=== PATIENT | male | born 1955 | race Caucasian/White ===

== ENCOUNTER → 2021-04-14 08:45 | Outpatient (CLI) | payer OTHER, SELFPAY ==
[2021-04-14 09:57] LABS: Prothrombin Time 22.7 SECONDS (10.1-12.7)
== END ==
PROVIDERS: PCP Internal Medicine; Referring Provider Internal Medicine; Visit Provider Internal Medicine
DX: I48.91 Unspecified atrial fibrillation (principal)
CPT/HCPCS: 36415; 85610

== ENCOUNTER → 2021-05-13 09:52 | Outpatient (CLI) | payer OTHER, SELFPAY ==
[2021-05-13 11:13] LABS: Add Manual Diff / Slide Review NO; Basophils Absolute Auto 100 /uL (0-100); Basophils Percent Auto 0.8 % (0-2); Eosinophils Absolute Auto 200 /uL (0-450); Eosinophils Percent Auto 2.5 % (2-4); Hemoglobin 14.2 g/dL (13.5-17.5); Lymphocytes Absolute Auto 1300 /uL (1100-4500); Lymphocytes Percent Auto 20.7 % (25-40); Mean Corpuscular HGB Conc 35.4 % (30-36); Mean Corpuscular Hemoglobin 31.3 PG (26-34); Mean Corpuscular Volume 88.3 fL (80-100); Monocytes Absolute Auto 600 /uL (0-900); Monocytes Percent Auto 9.8 % (3-14); Neutrophils Absolute Auto 4300 /uL (1500-7000); Neutrophils Percent Auto 66.2 % (50-75); Platelet Count 112 X10^3/uL (150-400); Red Blood Cell Count 4.53 X10^6/uL (4.5-5.9); White Blood Cell Count 6.5 X10^3/uL (4.5-11.0)
[2021-05-13 11:29] LABS: HEMOLYSIS < 15 (0-50); Iron 96 ug/dL (49-181)
[2021-05-13 11:32] LABS: Alanine Aminotransferase 23 IU/L (<50); Albumin 4.5 g/dL (3.5-5.0); Albumin Globulin Ratio 1.7 (1.0-2.8); Alkaline Phosphatase 58 U/L (38-126); Aspartate Aminotransferase 30 IU/L (17-59); BUN Creatinine Ratio 21.8 (6-22); Bilirubin Total 0.8 mg/dL (0.2-1.3); Blood Urea Nitrogen 22 mg/dL (9-20); Calcium 9.7 mg/dL (8.4-10.2); Carbon Dioxide 29 mmol/L (22-32); Chloride 106 mmol/L (98-107); Estimated Glomerular Filt Rate > 60.0 mL/min (>60); Globulin 2.7 g/dL (1.7-4.1); Glucose 108 mg/dL (80-110); HEMOLYSIS < 15 (0-50); Potassium 3.9 mmol/L (3.4-5.1); Sodium 140 mmol/L (137-145); Total Protein 7.2 g/dL (6.3-8.2)
[2021-05-13 11:39] LABS: Percent Iron Saturation 29 % (20-50); Total Iron Binding Capacity 331 ug/dL (261-462); Transferrin 257 mg/dL (206-381)
[2021-05-13 11:48] LABS: Vitamin D 25 Hydroxy (D3) 31.5 ng/mL (30.0-100.0)
== END ==
PROVIDERS: PCP Internal Medicine; Referring Provider Internal Medicine; Visit Provider Internal Medicine
DX: E78.2 Mixed hyperlipidemia (principal); I48.0 Paroxysmal atrial fibrillation; I10 Essential (primary) hypertension; Z79.01 Long term (current) use of anticoagulants
CPT/HCPCS: 36415; 80053; 82306; 83540; 83550; 85025

== ENCOUNTER → 2021-07-28 10:15 | Outpatient (CLI) | payer OTHER, SELFPAY ==
[2021-07-28 12:46] LABS: Add Manual Diff / Slide Review NO; Basophils Absolute Auto 0 /uL (0-100); Basophils Percent Auto 0.6 % (0-2); Eosinophils Absolute Auto 200 /uL (0-450); Eosinophils Percent Auto 2.6 % (2-4); Hemoglobin 14.8 g/dL (13.5-17.5); Lymphocytes Absolute Auto 1300 /uL (1100-4500); Lymphocytes Percent Auto 19.8 % (25-40); Mean Corpuscular HGB Conc 35.2 % (30-36); Mean Corpuscular Hemoglobin 30.9 PG (26-34); Mean Corpuscular Volume 87.9 fL (80-100); Monocytes Absolute Auto 600 /uL (0-900); Neutrophils Absolute Auto 4500 /uL (1500-7000); Platelet Count 116 X10^3/uL (150-400); Red Blood Cell Count 4.78 X10^6/uL (4.5-5.9); Red Cell Distribution Width 14.1 % (11.6-14.8); White Blood Cell Count 6.6 X10^3/uL (4.5-11.0)
[2021-07-28 13:04] LABS: HEMOLYSIS < 15 (0-50); Iron 140 ug/dL (49-181)
[2021-07-28 13:13] LABS: Alanine Aminotransferase 26 IU/L (<50); Albumin 4.3 g/dL (3.5-5.0); Albumin Globulin Ratio 1.7 (1.0-2.8); Alkaline Phosphatase 63 U/L (38-126); Aspartate Aminotransferase 31 IU/L (17-59); BUN Creatinine Ratio 17.5 (6-22); Bilirubin Total 0.9 mg/dL (0.2-1.3); Blood Urea Nitrogen 18 mg/dL (9-20); Carbon Dioxide 28 mmol/L (22-32); Chloride 105 mmol/L (98-107); Cholesterol 165 mg/dL (140-199); Estimated Glomerular Filt Rate > 60 mL/min (>60); Globulin 2.6 g/dL (1.7-4.1); Glucose 105 mg/dL (80-110); HDL Cholesterol 45 mg/dL (40-60); HEMOLYSIS < 15 (0-50); LDL Cholesterol Calculated 92 mg/dL (<100); Sodium 138 mmol/L (137-145); Total Protein 6.9 g/dL (6.3-8.2); Triglycerides 139 mg/dL (35-150)
[2021-07-28 13:15] LABS: Percent Iron Saturation 41 % (20-50); Total Iron Binding Capacity 339 ug/dL (261-462); Transferrin 235 mg/dL (206-381)
== END ==
PROVIDERS: PCP Internal Medicine; Referring Provider Internal Medicine; Visit Provider Internal Medicine
DX: E78.2 Mixed hyperlipidemia (principal); E78.5 Hyperlipidemia, unspecified; D69.6 Thrombocytopenia, unspecified; I10 Essential (primary) hypertension; Z79.01 Long term (current) use of anticoagulants
CPT/HCPCS: 36415; 80053; 80061; 83540; 83550; 85025

== ENCOUNTER → 2021-08-02 13:31 | Outpatient (CLI) | payer OTHER, SELFPAY ==
--- NOTE | 2021-08-02 | DI.ECHO.S_ITS ---
[facility] +---------+ : : [address] : [address] [place] : : : : [id number] : : : : Phone: [phone] Echocardiogram Report + + :Name: LETHA KLEIN Study Date: 08/02/2021 Height: 73 in : :[facility] ReadingLocation: Weight: 269 lb : : Gender: Male BSA: 2.4 m2 : :: 1955 Age: 66 yrs BP: 169/93 mmHg: :Reason For Study: Aortic valve replacement - mechanical : :Ordering Physician: SYLWIA, : :NACHO Performed By: Salvador Dawkins : :Referring: NACHO CAMPBELL : + + Interpretation Summary 1) Mildly increased left ventricular thickness (concentric) with normal size, normal wall motion, and normal systolic function (EF 55-60%). 2) Normal right ventricular size and function. 3) There is a mechanical aortic valve that is well seated and opens well (mean gradient 9mm Hg). There is trace aortic regurgitation. 4) Hypertension present during the study (BP 169/93mm Hg). 5) No prior Echo available for comparison. Procedure: A two-dimensional transthoracic echocardiogram with color flow and Doppler was performed. The study quality was technically adequate. There is no prior echocardiogram noted for this patient. The patient was in normal sinus rhythm during the exam. Left Ventricle: The left ventricle is normal in size. There is mild concentric left ventricular hypertrophy. Left ventricular systolic function is normal. The ejection fraction is estimated to be 55-60%. There are no focal wall motion abnormalities. Diastolic parameters suggest probable normal left ventricular diastolic function and normal filling pressures. Right Ventricle: The right ventricle is normal in size and function. Atria: Both atria are normal in size. The interatrial septum grossly appears intact with no obvious evidence for an atrial septal defect. Mitral Valve: The mitral valve is normal in structure and function. There is no mitral regurgitation noted. Aortic Valve: There is a mechanical aortic valve. The prosthetic aortic valve is well-seated. There is probable normal prosthetic aortic valve function. There is trace aortic regurgitation. Tricuspid Valve: The tricuspid valve is normal in structure and function. No tricuspid regurgitation. Pulmonary artery pressures cannot be estimated because of the lack of a measurable TR jet velocity. Pulmonic Valve: The pulmonic valve is not well visualized. There is no pulmonic valvular regurgitation. Great Vessels: The aortic root is not well visualized. The ascending aorta could not be visualized. The IVC is of normal diameter and collapses greater than 50% with a sniff. This suggests a low right atrial pressure of 3 mm Hg. Pericardium/ Pleura There is no pericardial effusion. There is no pleural effusion. MMode/2D Measurements & Calculations LVIDd: 4.5 cm LA dimension: 4.1 cm LVIDs: 3.3 cm LA A2 area: 24.5 cm2 FS: 26.7 % LA A4 area: 19.6 cm2 IVSd: 1.3 cm LA length (vol): 6.0 cm LVPWd: 1.2 cm LA vol: 68.3 ml LV [place]. diameter/BSA (cm/m^2): 1.8 LA vol index: 28.0 ml/m2 LV sys. diameter/BSA (cm/m^2): 1.4 RA long axis: 5.2 cm TAPSE_phl: 2.4 cm Doppler Measurements & Calculations Ao V2 max: 219.0 cm/sec LVOT Max Kelvin: 112.0 cm/sec Ao V2 mean: 136.0 cm/sec LV V1 max P.0 mmHg Ao max P.0 mmHg LV V1 VTI: 24.3 cm Ao mean P.0 mmHg sev ratio: 0.58 Ao V2 VTI: 42.0 cm MV E max kelvin: 88.7 cm/sec AV VR_phl: 0.51 MV A max kelvin: 65.1 cm/sec MV E/A: 1.4 Med Peak E' Kelvin: 11.3 cm/sec E/E' med: 7.8 Lat Peak E' Kelvin: 14.7 cm/sec E/E' lat: 6.0 E/e' average: 6.9 MV dec time: 0.18 sec MV P1/2t-pr_phl: 52.0 msec Reading Physician:04:26 PM
== END ==
PROVIDERS: PCP Internal Medicine; Referring Provider Internal Medicine Cardiovascular Disease; Visit Provider Internal Medicine Cardiovascular Disease
DX: Z95.2 Presence of prosthetic heart valve (principal); Z09 Encounter for follow-up examination after completed treatment for conditions other than malignant neoplasm
CPT/HCPCS: 93306

== ENCOUNTER → 2022-02-18 08:31 | Outpatient (CLI) | payer OTHER, SELFPAY ==
[2022-02-18 10:14] LABS: Add Manual Diff / Slide Review NO; Basophils Absolute Auto 0 /uL (0-100); Basophils Percent Auto 0.7 % (0-2); Eosinophils Absolute Auto 200 /uL (0-450); Hematocrit 41.5 % (41-53); Hemoglobin 14.4 g/dL (13.5-17.5); Lymphocytes Absolute Auto 1300 /uL (1100-4500); Mean Corpuscular HGB Conc 34.8 % (30-36); Mean Corpuscular Hemoglobin 30.3 PG (26-34); Monocytes Absolute Auto 700 /uL (0-900); Monocytes Percent Auto 10.4 % (3-14); Neutrophils Absolute Auto 4500 /uL (1500-7000); Neutrophils Percent Auto 66.9 % (50-75); Platelet Count 128 X10^3/uL (150-400); Red Blood Cell Count 4.76 X10^6/uL (4.5-5.9); Red Cell Distribution Width 14.2 % (11.6-14.8); White Blood Cell Count 6.7 X10^3/uL (4.5-11.0)
[2022-02-18 12:19] LABS: Alanine Aminotransferase 25 IU/L (<50); Albumin 4.3 g/dL (3.5-5.0); Albumin Globulin Ratio 1.9 (1.0-2.8); Alkaline Phosphatase 75 U/L (38-126); Aspartate Aminotransferase 25 IU/L (17-59); BUN Creatinine Ratio 22.7 (6-22); Bilirubin Total 0.5 mg/dL (0.2-1.3); Blood Urea Nitrogen 25 mg/dL (9-20); Calcium 9.2 mg/dL (8.4-10.2); Carbon Dioxide 27 mmol/L (22-32); Chloride 104 mmol/L (98-107); Cholesterol 143 mg/dL (140-199); Estimated Glomerular Filt Rate > 60 mL/min (>60); Globulin 2.3 g/dL (1.7-4.1); Glucose 112 mg/dL (80-110); HDL Cholesterol 39 mg/dL (40-60); LDL Cholesterol Calculated 80 mg/dL (<100); Total Protein 6.6 g/dL (6.3-8.2); Triglycerides 122 mg/dL (35-150)
[2022-02-18 12:20] LABS: HEMOLYSIS < 15 (0-50); Potassium 3.9 mmol/L (3.4-5.1); Sodium 139 mmol/L (137-145)
== END ==
PROVIDERS: PCP Internal Medicine; Referring Provider Internal Medicine; Visit Provider Internal Medicine
DX: D69.6 Thrombocytopenia, unspecified (principal); E78.2 Mixed hyperlipidemia; I10 Essential (primary) hypertension; Z79.01 Long term (current) use of anticoagulants; Z87.898 Personal history of other specified conditions
CPT/HCPCS: 80053; 80061; 84153; 85025

== ENCOUNTER 2022-05-05 04:18 | Emergency (ER) | payer OTHER, SELFPAY ==
[2022-05-05] VITALS (10 sets, daily range): BP systolic 148–183; BP diastolic 77–98; PULSE 63–115; RESP 15–20; TEMP 36.5; O2SAT 94–99; BMI 38.2
--- NOTE | 2022-05-05 04:44 | ED.ARRPALP ---
HPI - Arrhythmia/Palpitations General Chief Complaint: Arrhythmia/Palpitations Stated Complaint: elevated and irregular heart rate Time Seen by Provider: 05/05/22 04:30 Source: patient and family () Mode of arrival: Ambulatory Limitations: no limitations History of Present Illness HPI narrative: Patient is a 67-year-old male. Has a history of paroxysmal atrial fibrillation. Is on diltiazem. Is also on warfarin. Has a history of an aortic valve replacement. This was secondary to endocarditis that he had after having an ablation and subsequent sepsis most likely from a urinary source. That was done 2 years ago. He is had no issues with atrial fibrillation that he knows of since then. Last evening he stated that he started not feel very well. He felt like his heart rate was fast. He can not specifically feel like it is irregular. His heart rate is normally in the 50s and 60s and when he took his heart rate last evening it was in the 90s to 100s. He is not lightheaded. No shortness of breath. He has been taking all of his medications as directed. He is had no recent change to medications. Related Data Home Medications Medication Instructions Recorded Confirmed vit C 250 mg-E 90 mg-zinc 40 1 tab PO QAM AND QPM 04/06/21 03/15/22 mg-copper 1 [id number]-owabqk-xkrtyl chew tablet (PreserVision AREDS-2) diltiazem HCl 180 mg 180 mg PO DAILY 09/23/21 03/15/22 capsule,extended release 24 hr Previous Rx's Medication Instructions Recorded losartan 100 mg tablet 100 mg PO DAILY #90 tabs 05/18/21 potassium chloride 20 mEq 20 meq PO DAILY #90 tabs 05/18/21 tablet,extended release lancets (Coaguchek Lancets) #100 ea 09/23/21 amoxicillin 500 mg tablet 2,000 mg PO ONCE #8 tabs 09/24/21 cholecalciferol (vitamin D3) 25 25 mcg PO DAILY #90 caps 10/04/21 mcg (1,000 unit) capsule atorvastatin 20 mg tablet 20 mg PO BEDTIME #90 tabs 03/15/22 hydrochlorothiazide 25 mg tablet 25 mg PO DAILY #90 tabs 03/15/22 warfarin 5 mg tablet See Rx Instructions .Route 03/21/22 .COMPLEX #130 tabs Allergies Allergy/AdvReac Type Severity Reaction Status Date / Time No Known Drug Allergies Allergy Verified 03/15/22 09:32 Review of Systems Review of Systems ROS Unobtainable: All systems reviewed & are unremarkable except as noted in HPI and below Patient History Medical History Ankle pain Atrial fibrillation (~2017) BPH (benign prostatic hyperplasia) (~2011) Chronic back pain Class 2 obesity with body mass index (BMI) of 38.0 to 38.9 in adult Endocarditis (~2019) History of adenomatous polyp of colon History of elevated PSA Hypertension (~2014) prison current use of anticoagulant Mixed hyperlipidemia Osteoarthritis of hips, bilateral Osteomyelitis (~2020) Thrombocytopenia Wears glasses Surgical History Anesthesia Aortic valve replaced (~2019) History of cardioversion (~2017) History of total hip replacement (~2011) S/P TURP (~2020) Status post ablation of atrial fibrillation (~2019) Family History Father Cancer History of heart disease Hyperlipidemia Mother Cancer Grandmother Rheumatoid arthritis Grandfather Cancer Diabetes mellitus Hypertension Social History Smoking Status: Never smoker Smoking Status: Never smoker alcohol intake frequency: 3 or more drinks per day Alcohol type: beer Substance Use Type: does not use Exam Initial Vital Signs Initial Vital Signs: Vital Signs Pulse Rate 108 H 05/05/22 04:30 Respiratory Rate 18 05/05/22 04:30 Pulse Oximetry 97 05/05/22 04:30 Oxygen Delivery Method 05/05/22 04:30 Const General: cooperative, comfortable and No ill appearing [facility] Head: normal to inspection and normocephalic Resp Effort & Inspection: normal respiratory effort Auscultation: clear to auscultation bilaterally Cardio Rate: tachycardic Rhythm: regular rhythm GI Inspection: normal to inspection Skin General: no rashes or lesions noted Neuro General: patient alert, patient awake, patient oriented x3 and moves all extremities Extrem General: normal to inspection, capillary refill normal and No edema Procedures Cardioversion Consent Signed: Yes Indication: AFib with RVR Stability: Stable Number of attempts (shocks): 1 Joules used: 120 Cardiac rhythm post-cardioversion: Sinus rhythm Procedural Sedation Consent signed: Yes Time out performed: Yes Indication: cardioversion ASA Class: II Mallampati Airway Classification: Class I Preparation: shelter monitor applied, pulse oximeter, capnometry used, supplemental O2 applied, suction/airway equipment at bedside and IV secured Fentanyl: IV Fentanyl dose (mcg): 25 IV Propofol dose (mg): 70 Course Orders Ordered: ED Orders 05/05/22 EKG-12 Lead Routine 05/05/22 04:30 Basic Metabolic Panel Stat Complete Blood Count AUTO DIFF Stat Magnesium Stat 05/05/22 04:46 EKG-12 Lead Stat Sodium Chloride (Normal Saline 0.9%) 1,000 mls @ 125 mls/hr IV CONT MAC Last Admin: 05/05/22 05:00 Dose: 125 mls/hr Documented By: VINAY Discontinued Medications Fentanyl (Fentanyl 100 Mcg/2 Ml Inj) 25 mcg IV NOW ONE Stop: 05/05/22 04:46 Last Admin: 05/05/22 05:05 Dose: 25 mcg Documented By: VINAY Propofol (Propofol 200 Mg/20 Ml Vial) 200 mg IV NOW ONE Stop: 05/05/22 04:46 Last Admin: 05/05/22 05:07 Dose: 70 mg Documented By: VINAY Vital Signs Vital signs: Vital Signs - 8 hr 05/05/22 04:31 05/05/22 05:01 05/05/22 05:05 Temperature 97.7 F Pulse Rate 115 H 104 H 107 H Respiratory Rate 17 18 18 Blood Pressure 182/98 H 181/86 H 183/88 H Pulse Oximetry 97 99 97 Oxygen Delivery Method Room Air 05/05/22 05:08 05/05/22 05:12 05/05/22 04:30 Temperature Pulse Rate 68 67 108 H Respiratory Rate 20 20 18 Blood Pressure 163/77 H Pulse Oximetry 94 98 97 Oxygen Delivery Method Room Air 05/05/22 05:15 05/05/22 05:20 05/05/22 05:30 Temperature Pulse Rate 67 69 63 Respiratory Rate 18 15 17 Blood Pressure 148/78 H 150/85 H 150/79 H Pulse Oximetry 97 98 98 Oxygen Delivery Method Room Air Room Air Room Air MDM - Arrhythmia/Palpitations Lab Data Attestation: I reviewed the patient's lab results. 05/05/22 04:30 05/05/22 04:30 Labs: Lab Results 05/05/22 05/05/22 Range/Units 04:30 04:30 WBC 8.3 (4.5-11.0) X10^3/uL RBC 5.20 (4.5-5.9) X10^6/uL Hgb 15.4 (13.5-17.5) g/dL Hct 45.1 (41-53) % MCV 86.9 (80-100) fL MCH 29.7 (26-34) PG MCHC 34.2 (30-36) % RDW 14.7 (11.6-14.8) % Plt Count 124 L (150-400) X10^3/uL Neut % (Auto) 65.9 (50-75) % Lymph % (Auto) 20.3 L (25-40) % [place] % (Auto) 10.1 (3-14) % Eos % (Auto) 2.9 (2-4) % Baso % (Auto) 0.8 (0-2) % Neut # (Auto) 5500 (3033-7241) /uL Lymph # (Auto) 1700 (4786-1923) /uL [place] # (Auto) 800 (0-900) /uL Eos # (Auto) 200 (0-450) /uL Baso # (Auto) 100 (0-100) /uL Sodium 137 (137-145) mmol/L Potassium 4.0 (3.4-5.1) mmol/L Chloride 100 (98-107) mmol/L Carbon Dioxide 29 (22-32) mmol/L BUN 25 H (9-20) mg/dL Creatinine 1.16 (0.66-1.25) mg/dL Estimated GFR > 60 (>60) mL/min BUN/Creatinine Ratio 21.6 (6-22) Glucose 130 H (80-110) mg/dL Calcium 9.5 (8.4-10.2) mg/dL Magnesium 1.8 (1.6-2.3) mg/dL ECG Data Attestation: I personally reviewed and interpreted this ECG as follows: Interpretation: Pre cardioversion Atrial fibrillation Ventricular rate [address] T wave changes Post cardioversion Sinus rhythm Ventricular rate is 67 Left axis deviation Normal QRS Normal QTC No ST T wave changes MDM Narrative Medical decision making narrative: Patient is on warfarin. Symptoms started last evening at 2100 hours. Had a discussion with him and his regarding options to include rate control with medications versus rhythm control with sedation and cardioversion. We discussed the risks and benefits of each of these. After this discussion the patient opted for the sedation and cardioversion. Consent was signed. Patient was sedated and cardioversion was successful. Patient stated that he did not feel/remember any of the procedure. Was in sinus rhythm afterwards. Plan will be is for him to continue to take all of his medications as directed. No indication to change any of those currently. He was given return precautions. He expressed understanding and agreement. Discharge Plan Departure Patient Disposition: Home Clinical Impression: Atrial fibrillation status post cardioversion Instructions: DI for Cardioversion, DI for Atrial Fibrillation Activity Restrictions/Additional Instructions: I recommend that you continue to take all of your medications as directed. Contact your primary doctor and your associate professor of surgery for follow-up. Return to the emergency department for any new or worsening symptoms. Prescriptions: No Action amoxicillin 500 mg tablet 2,000 mg PO ONCE Qty: 8 3RF Rx Instructions: 4 tabs once 1-2 hours before dental procedure cholecalciferol (vitamin D3) 25 mcg (1,000 unit) capsule 25 mcg PO DAILY Qty: 90 3RF warfarin 5 mg tablet See Rx Instructions .ROUTE .COMPLEX Qty: 130 1RF Dose Instruction: Take 1.5 tablets (7.5 mg) daily, or as directed. Rx Instructions: Take 1.5 tablets (7.5 mg) daily, or as directed. atorvastatin 20 mg tablet 20 mg PO BEDTIME Qty: 90 3RF hydrochlorothiazide 25 mg tablet 25 mg PO DAILY Qty: 90 3RF PreserVision AREDS-2 250-90-40-1 mg tablet,chewable 1 tab PO QAM AND QPM losartan 100 mg tablet 100 mg PO DAILY Qty: 90 3RF potassium chloride 20 mEq tablet extended release 20 meq PO DAILY Qty: 90 3RF (DME) lancets [Coaguchek Lancets] Misc See Rx Instructions .Route Qty: 100 3RF Rx Instructions: As directed diltiazem HCl 180 mg capsule,extended release 24hr 180 mg PO DAILY Referrals: Clifton Leung MD [Primary Care Provider] - Stand Alone Forms: Patient Portal/API
[2022-05-05] MEDS: SODIUM CHLORIDE 0.9% 1,000 ML 125 ML IV (05:00)
[2022-05-05] MEDS: fentaNYL 100 MCG/2 ML INJ 25 MCG IV (05:05)
[2022-05-05] MEDS: propofoL 200 MG/20 ML VIAL IV (05:07)
[2022-05-05 05:08] LABS: Add Manual Diff / Slide Review NO; Basophils Absolute Auto 100 /uL (0-100); Basophils Percent Auto 0.8 % (0-2); Eosinophils Absolute Auto 200 /uL (0-450); Eosinophils Percent Auto 2.9 % (2-4); Hematocrit 45.1 % (41-53); Hemoglobin 15.4 g/dL (13.5-17.5); Lymphocytes Absolute Auto 1700 /uL (1100-4500); Lymphocytes Percent Auto 20.3 % (25-40); Mean Corpuscular HGB Conc 34.2 % (30-36); Mean Corpuscular Hemoglobin 29.7 PG (26-34); Mean Corpuscular Volume 86.9 fL (80-100); Monocytes Absolute Auto 800 /uL (0-900); Monocytes Percent Auto 10.1 % (3-14); Neutrophils Absolute Auto 5500 /uL (1500-7000); Neutrophils Percent Auto 65.9 % (50-75); Platelet Count 124 X10^3/uL (150-400); Red Cell Distribution Width 14.7 % (11.6-14.8); White Blood Cell Count 8.3 X10^3/uL (4.5-11.0)
[2022-05-05 05:11] LABS: BUN Creatinine Ratio 21.6 (6-22); Blood Urea Nitrogen 25 mg/dL (9-20); Calcium 9.5 mg/dL (8.4-10.2); Carbon Dioxide 29 mmol/L (22-32); Chloride 100 mmol/L (98-107); Estimated Glomerular Filt Rate > 60 mL/min (>60); Glucose 130 mg/dL (80-110); HEMOLYSIS 21 (0-50); Magnesium 1.8 mg/dL (1.6-2.3); Sodium 137 mmol/L (137-145)
== END 2022-05-05 06:10 | disposition home or self-care (01) ==
PROVIDERS: Emergency Provider Emergency Medicine; PCP Internal Medicine
DX: I48.20 Chronic atrial fibrillation, unspecified (principal); Z79.01 Long term (current) use of anticoagulants; Z95.2 Presence of prosthetic heart valve
CPT/HCPCS: 36415; 80048; 83735; 85025; 92960; 93005; 96360; 99152; 99153; 99285; 99291; J2704; J3010

== ENCOUNTER → 2022-08-16 07:08 | Outpatient (CLI) | payer OTHER, SELFPAY ==
[2022-08-16 08:08] LABS: Add Manual Diff / Slide Review NO; Basophils Absolute Auto 0 /uL (0-100); Basophils Percent Auto 0.5 % (0-2); Eosinophils Absolute Auto 200 /uL (0-450); Eosinophils Percent Auto 3.3 % (2-4); Hemoglobin 14.6 g/dL (13.5-17.5); Lymphocytes Absolute Auto 1300 /uL (1100-4500); Lymphocytes Percent Auto 17.8 % (25-40); Mean Corpuscular HGB Conc 34.9 % (30-36); Mean Corpuscular Volume 86.1 fL (80-100); Monocytes Absolute Auto 700 /uL (0-900); Monocytes Percent Auto 9.8 % (3-14); Neutrophils Absolute Auto 5000 /uL (1500-7000); Neutrophils Percent Auto 68.6 % (50-75); Platelet Count 123 X10^3/uL (150-400); Red Blood Cell Count 4.88 X10^6/uL (4.5-5.9); Red Cell Distribution Width 14.7 % (11.6-14.8); White Blood Cell Count 7.3 X10^3/uL (4.5-11.0)
[2022-08-16 08:43] LABS: BUN Creatinine Ratio 16.2 (6-22); Blood Urea Nitrogen 18 mg/dL (9-20); Calcium 9.2 mg/dL (8.4-10.2); Carbon Dioxide 29 mmol/L (22-32); Chloride 102 mmol/L (98-107); Cholesterol 147 mg/dL (140-199); Estimated Glomerular Filt Rate > 60 mL/min (>60); Glucose 126 mg/dL (80-110); HDL Cholesterol 42 mg/dL (40-60); HEMOLYSIS < 15 (0-50); LDL Cholesterol Calculated 75 mg/dL (<100); Potassium 3.8 mmol/L (3.4-5.1); Sodium 138 mmol/L (137-145); Triglycerides 150 mg/dL (35-150)
== END ==
PROVIDERS: PCP Internal Medicine; Referring Provider Internal Medicine Cardiovascular Disease; Visit Provider Internal Medicine Cardiovascular Disease
DX: Z79.01 Long term (current) use of anticoagulants (principal); E78.5 Hyperlipidemia, unspecified; I10 Essential (primary) hypertension
CPT/HCPCS: 36415; 80048; 80061; 85025

== ENCOUNTER → 2023-03-07 08:11 | Outpatient (CLI) | payer OTHER, SELFPAY ==
[2023-03-07 09:16] LABS: Add Manual Diff / Slide Review NO; Basophils Absolute Auto 0 /uL (0-100); Basophils Percent Auto 0.5 % (0-2); Eosinophils Absolute Auto 200 /uL (0-450); Eosinophils Percent Auto 2.6 % (2-4); Hematocrit 43.1 % (41-53); Hemoglobin 14.8 g/dL (13.5-17.5); Lymphocytes Absolute Auto 1500 /uL (1100-4500); Lymphocytes Percent Auto 18.3 % (25-40); Mean Corpuscular HGB Conc 34.3 % (30-36); Mean Corpuscular Hemoglobin 29.6 PG (26-34); Mean Corpuscular Volume 86.3 fL (80-100); Monocytes Absolute Auto 700 /uL (0-900); Monocytes Percent Auto 8.7 % (3-14); Neutrophils Absolute Auto 5700 /uL (1500-7000); Neutrophils Percent Auto 69.9 % (50-75); Platelet Count 152 X10^3/uL (150-400); Red Cell Distribution Width 14.3 % (11.6-14.8); White Blood Cell Count 8.2 X10^3/uL (4.5-11.0)
[2023-03-07 13:16] LABS: Alanine Aminotransferase 37 IU/L (<50); Albumin 4.4 g/dL (3.5-5.0); Albumin Globulin Ratio 1.5 (1.0-2.8); Alkaline Phosphatase 87 U/L (38-126); Aspartate Aminotransferase 33 IU/L (17-59); BUN Creatinine Ratio 20.9 (6-22); Blood Urea Nitrogen 24 mg/dL (9-20); Calcium 10.1 mg/dL (8.4-10.2); Carbon Dioxide 27 mmol/L (22-32); Chloride 100 mmol/L (98-107); Cholesterol 142 mg/dL (140-199); Estimated Glomerular Filt Rate > 60 mL/min (>60); Globulin 2.9 g/dL (1.7-4.1); Glucose 115 mg/dL (80-110); HDL Cholesterol 35 mg/dL (40-60); HEMOLYSIS < 15 (0-50); LDL Cholesterol Calculated 79 mg/dL (<100); Potassium 3.9 mmol/L (3.4-5.1); Sodium 136 mmol/L (137-145); Total Protein 7.3 g/dL (6.3-8.2); Triglycerides 139 mg/dL (35-150)
[2023-03-07 13:48] LABS: Prostate Specific Antigen Scrn 1.55 ng/mL (0.1-4.0)
== END ==
PROVIDERS: PCP Internal Medicine; Referring Provider Internal Medicine; Visit Provider Internal Medicine
DX: Z12.5 Encounter for screening for malignant neoplasm of prostate (principal); E78.2 Mixed hyperlipidemia; I10 Essential (primary) hypertension; R73.02 Impaired glucose tolerance (oral); D69.6 Thrombocytopenia, unspecified
CPT/HCPCS: 36415; 80053; 80061; 85025; G0103

== ENCOUNTER → 2023-04-21 07:56 | Outpatient (CLI) | payer OTHER, SELFPAY | LOC: LAB 07:57 | PROVIDERS: PCP Internal Medicine; Referring Provider Orthopaedic Surgery Adult Reconstructive Orthopaedic Surgery; Visit Provider Orthopaedic Surgery Adult Reconstructive Orthopaedic Surgery | DX: M25.551 Pain in right hip (principal) | CPT/HCPCS: 36415; 82495; 83018 ==

== ENCOUNTER → 2023-04-27 10:19 | Outpatient (CLI) | payer OTHER, SELFPAY | PROVIDERS: PCP Internal Medicine; Referring Provider Orthopaedic Surgery Adult Reconstructive Orthopaedic Surgery; Visit Provider Orthopaedic Surgery Adult Reconstructive Orthopaedic Surgery | DX: M25.551 Pain in right hip (principal) | CPT/HCPCS: 36415; 82495; 83018 ==

== ENCOUNTER 2023-06-23 19:51 | Emergency (ER) | payer OTHER, SELFPAY ==
[2023-06-23] VITALS (7 sets, daily range): BP systolic 160–188; BP diastolic 72–81; PULSE 63–76; RESP 16–18; TEMP 36.5; O2SAT 96–98; BMI 37.2
--- NOTE | 2023-06-23 21:03 | ED.GENADULT ---
HPI - General Adult General Chief complaint: Upper Respiratory Symptoms Stated complaint: difficulty swallowing/not sore Time Seen by Provider: 06/23/23 20:56 Source: patient Mode of arrival: Ambulatory History of Present Illness HPI narrative: 68-year-old male presents by private vehicle from home for several weeks of the sensation that he can not swallow well. He states that he was able to eat and drink normally, but he feels like if there was only a small amount of saliva in his throat he has difficulty with his swallowing. He states that he feels like there is something in the center of his throat towards the base of his neck. He states that for the last 3 nights he was not been able to sleep very well due to issues with his home CPAP machine, and this is caused him some anxiety. He states that he feels like his swallowing is worse and so he decided to present for evaluation. Related Data Home Medications Medication Instructions Recorded Confirmed vit C 250 mg-E 90 mg-zinc 40 1 tab PO QAM AND QPM 04/06/21 03/16/23 mg-copper 1 [id number]-fcvyom-hvdxkf chew tablet (PreserVision AREDS-2) diltiazem HCl 360 mg 360 mg PO DAILY 09/12/22 03/16/23 capsule,extended release 24 hr Previous Rx's Medication Instructions Recorded warfarin 5 mg tablet See Rx Instructions .Route 09/15/22 .COMPLEX #135 tabs cholecalciferol (vitamin D3) 25 25 mcg PO DAILY #90 caps 11/15/22 mcg (1,000 unit) capsule amoxicillin 500 mg tablet 2,000 mg (4 x 500 mg) PO ONCE #8 11/22/22 tabs atorvastatin 20 mg tablet 20 mg PO BEDTIME #90 tabs 03/16/23 hydrochlorothiazide 25 mg tablet 25 mg PO DAILY #90 tabs 03/20/23 lancets (Coaguchek Lancets) #100 ea 04/14/23 Coagucheck XS Misc #1 kit 04/17/23 prothrombin time test strips #18 ea 04/17/23 (Coaguchek XS strips) potassium chloride 20 mEq 20 meq PO DAILY #90 tabs 05/15/23 tablet,extended release losartan 100 mg tablet 100 mg PO DAILY #90 tabs 06/05/23 Allergies Allergy/AdvReac Type Severity Reaction Status Date / Time No Known Drug Allergies Allergy Verified 03/16/23 10:52 Review of Systems Review of Systems Narrative: Negative except as noted above Patient History Medical History Impaired glucose tolerance Class 2 obesity with body mass index (BMI) of 38.0 to 38.9 in adult Osteoarthritis of hips, bilateral Thrombocytopenia half-way current use of anticoagulant Mixed hyperlipidemia History of adenomatous polyp of colon Wears glasses Osteomyelitis (~2020) Chronic back pain Ankle pain History of elevated PSA BPH (benign prostatic hyperplasia) (~2011) Endocarditis (~2019) Hypertension (~2014) Atrial fibrillation (~2017) Surgical History Hx of aortic valve replacement, mechanical (~2019) Anesthesia Status post ablation of atrial fibrillation (~2019) History of cardioversion (~2017) History of total hip replacement (~2011) S/P TURP (~2020) Family History Father Cancer History of heart disease Hyperlipidemia Mother Cancer Grandmother Rheumatoid arthritis Grandfather Cancer Diabetes mellitus Hypertension Social History Smoking Status: Never smoker Smoking Status: Never smoker alcohol intake frequency: 0-2 drinks per day Alcohol type: beer Substance Use Type: does not use Exam Initial Vital Signs Initial Vital Signs: Vital Signs Temperature 97.7 F 06/23/23 19:53 Pulse Rate 64 06/23/23 19:53 Respiratory Rate 16 06/23/23 19:53 Blood Pressure 188/81 H 06/23/23 19:53 Pulse Oximetry 98 06/23/23 19:53 Oxygen Delivery Method Room Air 06/23/23 19:53 Const: Awake, alert, no acute distress, nontoxic appearing HEENT: Airway patent, mucous membranes moist, no pooling of secretions, no tonsillar swelling, voice normal Neck: No obvious masses, no swelling Skin: Warm, Dry, intact, no rashes Neuro: AO x3, CN II-XII grossly intact, moves all extremities Course Orders Ordered: ED Orders 06/23/23 21:02 CT soft tissue neck w con Stat 06/23/23 21:10 CBC Auto Diff [Complete Blood Count AUTO DIFF] Stat CMP [Comprehensive Metabolic Panel] Stat PT [Prothrombin Time INR] Stat Vital Signs Vital signs: Vital Signs - 8 hr 06/23/23 23:00 06/23/23 23:28 06/23/23 23:28 Pulse Rate 76 65 Blood Pressure 164/76 H Pulse Oximetry 96 96 06/23/23 23:30 06/23/23 23:30 06/24/23 00:00 Pulse Rate 63 63 Blood Pressure 160/72 H Pulse Oximetry 97 98 Medical Decision Making Differential Diagnosis Differential Diagnosis: Thyroid nodule, bacterial pharyngitis, viral pharyngitis Lab Data 06/23/23 21:10 06/23/23 21:10 Labs: Lab Results 06/23/23 Range/Units 21:10 WBC 8.9 (4.5-11.0) X10^3/uL RBC 4.93 (4.5-5.9) X10^6/uL Hgb 14.9 (13.5-17.5) g/dL Hct 43.2 (41-53) % MCV 87.7 (80-100) fL MCH 30.2 (26-34) PG MCHC 34.5 (30-36) % RDW 14.5 (11.6-14.8) % Plt Count 134 L (150-400) X10^3/uL Neut % (Auto) 68.0 (50-75) % Lymph % (Auto) 16.7 L (25-40) % [place] % (Auto) 11.5 (3-14) % Eos % (Auto) 2.8 (2-4) % Baso % (Auto) 1.0 (0-2) % Neut # (Auto) 6100 (7618-9966) /uL Lymph # (Auto) 1500 (2017-6747) /uL [place] # (Auto) 1000 H (0-900) /uL Eos # (Auto) 300 (0-450) /uL Baso # (Auto) 100 (0-100) /uL PT 25.4 H (9.4-12.5) SECONDS INR 2.2 H (0.9-1.3) Sodium 140 (137-145) mmol/L Potassium 3.7 (3.4-5.1) mmol/L Chloride 105 (98-107) mmol/L Carbon Dioxide 27 (22-32) mmol/L BUN 20 (9-20) mg/dL Creatinine 1.02 (0.66-1.25) mg/dL Estimated GFR > 60 (>60) mL/min BUN/Creatinine Ratio 19.6 (6-22) Glucose 113 H (80-110) mg/dL Calcium 9.7 (8.4-10.2) mg/dL Total Bilirubin 0.8 (0.2-1.3) mg/dL AST 27 (17-59) IU/L ALT 24 (<50) IU/L Alkaline Phosphatase 70 (38-126) U/L Total Protein 7.3 (6.3-8.2) g/dL Albumin 4.7 (3.5-5.0) g/dL Globulin 2.6 (1.7-4.1) g/dL Albumin/Globulin Ratio 1.8 (1.0-2.8) Imaging Data CT - cervical spine: Radiologist's Impression: PROCEDURE: CT SOFT TISSUE NECK W CON INDICATIONS: DIFFICULTY SWALLOWING/GLOBUS SENSATION TECHNIQUE: After the administration of intravenous contrast, 3.0 mm axial sections acquired from the sella to the aortic arch. Additional oblique axial 3.0 mm sections acquired through the pharynx. 3 mm thick coronal and sagittal reformats were generated. For radiation dose reduction, the following was used: automated exposure control. COMPARISON: None. FINDINGS: Image quality: Excellent. Lymph nodes: No enlarged lymph nodes seen throughout the neck. Vessels: Visualized vasculature appears patent. Neck spaces: Uvula appears prominent. The oropharynx, nasopharynx, and pharynx demonstrate no mucosal lesions. The vocal cords, false vocal cords, pyriform sinuses, epiglottis, vallecula, and tongue base all appear normal. Extramucosal spaces appear unremarkable. Glands: The parotid and submandibular glands appear normal. Thyroid gland is normal. Miscellaneous: Visualized brain and orbits appear normal. Lung apices appear clear. Superficial soft tissues appear normal. Bones: No suspicious bony lesions. Visualized sinuses and mastoids appear unremarkable. IMPRESSION: 1. A cause for dysphagia is not definitively identified. 2. Question enlargement of uvula. Recommend correlation with findings on direct visualization. 3. If clinical symptoms persist, consider modified barium swallow with speech pathology. 4. No abnormality in the area of BB marker. Dictated by: Willi Horner M.D. on 06/23/2023 at 23:40 Approved by: Willi Horner M.D. on 06/23/2023 at 23:49 [facility] Narrative Medical decision making narrative: Well-appearing patient with the sensation that he can not swallow. Patient arrived to the emergency room drinking from a water cup without difficulty. Voice is normal. No obvious masses. CT does not show any obvious acute process that would explain patient's symptoms. Patient informed of lab and imaging findings. Patient's INR is 2.2 he was advised of this finding as well. Recommended close follow up with primary care physician if he continues to experience his trouble swallowing. Patient states that he has an upcoming appointment with his sleep doctor for his nightly CPAP adjustments, this may also help the patient sleep better. Discharge Plan Departure Patient Disposition: Home Clinical Impression: Abnormal swallowing Instructions: DI for Oropharyngeal Dysphagia Activity Restrictions/Additional Instructions: Your laboratory work today did not show any significant abnormalities. Your INR today is 2.2. Your CT scan did not show any obvious causes for why you would have trouble swallowing, there are no masses or lesions in your airway or esophagus. I recommend following up with your primary care physician if you continue to experience swallowing abnormalities as a swallow study may be indicated. Prescriptions: No Action warfarin 5 mg tablet See Rx Instructions .ROUTE .COMPLEX Qty: 135 3RF Dose Instruction: Take 1.5 tablets (7.5 mg) daily, or as directed. Rx Instructions: Take 1.5 tablets (7.5 mg) daily, or as directed. cholecalciferol (vitamin D3) 25 mcg (1,000 unit) capsule 25 mcg PO DAILY Qty: 90 3RF amoxicillin 500 mg tablet 2,000 mg PO ONCE Qty: 8 3RF Rx Instructions: 4 tabs once 1-2 hours before dental procedure hydrochlorothiazide 25 mg tablet 25 mg PO DAILY Qty: 90 3RF (DME) lancets [Coaguchek Lancets] Misc See Rx Instructions .Route Qty: 100 3RF Rx Instructions: As directed (DME) Coagucheck XS Misc See Rx Instructions .Route .MEDSUPPLY Qty: 1 0RF Rx Instructions: Use to test INR at home in consultation with AMS to keep INR in target range. Results Reporting: Call or by Secure Message (DME) Coaguchek XS Strip See Rx Instructions .ROUTE .COMPLEX Qty: 18 12RF Dose Instruction: Use or as directed by AMS to keep INR in target range. Results Reporting: Call or by Secure Message. Rx Instructions: Use or as directed by AMS to keep INR in target range. Results Reporting: Call or by Secure Message. potassium chloride 20 mEq tablet extended release 20 meq PO DAILY Qty: 90 3RF losartan 100 mg tablet 100 mg PO DAILY Qty: 90 3RF diltiazem HCl 360 mg capsule,extended release 24hr 360 mg PO DAILY PreserVision AREDS-2 250-90-40-1 mg tablet,chewable 1 tab PO QAM AND QPM atorvastatin 20 mg tablet 20 mg PO BEDTIME Qty: 90 3RF Referrals: Clifton Leung MD [Primary Care Provider] - Stand Alone Forms: Patient Portal/API
[2023-06-23 21:18] LABS: Add Manual Diff / Slide Review NO; Basophils Absolute Auto 100 /uL (0-100); Eosinophils Absolute Auto 300 /uL (0-450); Eosinophils Percent Auto 2.8 % (2-4); Hematocrit 43.2 % (41-53); Hemoglobin 14.9 g/dL (13.5-17.5); Lymphocytes Absolute Auto 1500 /uL (1100-4500); Lymphocytes Percent Auto 16.7 % (25-40); Mean Corpuscular HGB Conc 34.5 % (30-36); Mean Corpuscular Hemoglobin 30.2 PG (26-34); Mean Corpuscular Volume 87.7 fL (80-100); Monocytes Absolute Auto 1000 /uL (0-900); Monocytes Percent Auto 11.5 % (3-14); Neutrophils Absolute Auto 6100 /uL (1500-7000); Platelet Count 134 X10^3/uL (150-400); Red Blood Cell Count 4.93 X10^6/uL (4.5-5.9); Red Cell Distribution Width 14.5 % (11.6-14.8); White Blood Cell Count 8.9 X10^3/uL (4.5-11.0)
[2023-06-23 21:31] LABS: INR 2.2 (0.9-1.3); Prothrombin Time 25.4 SECONDS (9.4-12.5)
[2023-06-23 21:35] LABS: Alanine Aminotransferase 24 IU/L (<50); Albumin 4.7 g/dL (3.5-5.0); Albumin Globulin Ratio 1.8 (1.0-2.8); Alkaline Phosphatase 70 U/L (38-126); Aspartate Aminotransferase 27 IU/L (17-59); BUN Creatinine Ratio 19.6 (6-22); Bilirubin Total 0.8 mg/dL (0.2-1.3); Blood Urea Nitrogen 20 mg/dL (9-20); Calcium 9.7 mg/dL (8.4-10.2); Carbon Dioxide 27 mmol/L (22-32); Chloride 105 mmol/L (98-107); Estimated Glomerular Filt Rate > 60 mL/min (>60); Globulin 2.6 g/dL (1.7-4.1); Glucose 113 mg/dL (80-110); HEMOLYSIS < 15 (0-50); Potassium 3.7 mmol/L (3.4-5.1); Sodium 140 mmol/L (137-145); Total Protein 7.3 g/dL (6.3-8.2)
[2023-06-24] VITALS: PULSE 63; O2SAT 98
== END 2023-06-24 00:12 | disposition home or self-care (01) ==
PROVIDERS: Emergency Provider Emergency Medicine; PCP Internal Medicine
DX: R13.10 Dysphagia, unspecified (principal); Z79.01 Long term (current) use of anticoagulants; Z79.899 Other long term (current) drug therapy
CPT/HCPCS: 36415; 70491; 80053; 85025; 85610; 99283; 99284; Q9967

== ENCOUNTER → 2023-08-10 07:00 | Outpatient (CLI) | payer OTHER, SELFPAY ==
[2023-08-10 08:06] LABS: Add Manual Diff / Slide Review NO; Basophils Absolute Auto 0 /uL (0-100); Basophils Percent Auto 0.7 % (0-2); Eosinophils Absolute Auto 200 /uL (0-450); Lymphocytes Absolute Auto 1300 /uL (1100-4500); Mean Corpuscular HGB Conc 35.6 % (30-36); Mean Corpuscular Hemoglobin 30.7 PG (26-34); Mean Corpuscular Volume 86.2 fL (80-100); Monocytes Absolute Auto 800 /uL (0-900); Neutrophils Absolute Auto 4700 /uL (1500-7000); Neutrophils Percent Auto 67.3 % (50-75); Platelet Count 127 X10^3/uL (150-400); Red Blood Cell Count 4.87 X10^6/uL (4.5-5.9); Red Cell Distribution Width 14.7 % (11.6-14.8)
[2023-08-10 08:29] LABS: Alanine Aminotransferase 28 IU/L (<50); Albumin 4.4 g/dL (3.5-5.0); Alkaline Phosphatase 73 U/L (38-126); Aspartate Aminotransferase 30 IU/L (17-59); BUN Creatinine Ratio 20.8 (6-22); Blood Urea Nitrogen 22 mg/dL (9-20); Calcium 9.6 mg/dL (8.4-10.2); Carbon Dioxide 29 mmol/L (22-32); Chloride 105 mmol/L (98-107); Cholesterol 149 mg/dL (140-199); Estimated Glomerular Filt Rate > 60 mL/min (>60); Globulin 2.2 g/dL (1.7-4.1); Glucose 121 mg/dL (80-110); HDL Cholesterol 42 mg/dL (40-60); HEMOLYSIS < 15 (0-50); LDL Cholesterol Calculated 76 mg/dL (<100); Potassium 3.9 mmol/L (3.4-5.1); Sodium 138 mmol/L (137-145); Total Protein 6.6 g/dL (6.3-8.2); Triglycerides 155 mg/dL (35-150)
== END ==
PROVIDERS: PCP Internal Medicine; Referring Provider Internal Medicine Cardiovascular Disease; Visit Provider Internal Medicine Cardiovascular Disease
DX: I48.19 Other persistent atrial fibrillation (principal); E78.5 Hyperlipidemia, unspecified; I10 Essential (primary) hypertension; E78.2 Mixed hyperlipidemia; R73.02 Impaired glucose tolerance (oral); D69.6 Thrombocytopenia, unspecified; Z79.01 Long term (current) use of anticoagulants
CPT/HCPCS: 36415; 80053; 80061; 85025

== ENCOUNTER 2023-08-20 12:56 | Emergency (ER) | payer OTHER, SELFPAY ==
[2023-08-20 13:01] VITALS: BP 170/83; PULSE 64; RESP 20; TEMP 36.4; O2SAT 96; BMI 36.5
--- NOTE | 2023-08-20 14:48 | ED.RECABL ---
HPI - Recheck/Abnormal Lab/Rx General Chief Complaint: Recheck/Abnormal Lab/Rx Stated Complaint: swallowing problems, imsomnia Time Seen by Provider: 08/20/23 14:04 Source: patient Mode of arrival: Ambulatory History of Present Illness HPI narrative: Patient is a 68-year-old male history of aortic valve replacement on warfarin obstructive sleep apnea presenting today with right ear complaints. His biggest complaint seems to be that he has not been able to sleep in 5 days. He does have a history of insomnia but he reports last 5 days it has been getting worse. He is supposed to wear a CPAP machine but states that he can not find the right device and it does not seem to be working. He is getting up between the chair in the bed can not sleep for more than an hour at a time. He is very uncomfortable. He denies any sort of chest pain or shortness of breath or palpitations. He does have this history of AFib but he does not feel like he is in AFib. He has had some difficulty swallowing apparently had an EGD which did not show any acute abnormality. He is overall very frustrated he tried 10 mg of melatonin but it did not help. Related Data Home Medications Medication Instructions Recorded Confirmed vit C 250 mg-E 90 mg-zinc 40 1 tab PO QAM AND QPM 04/06/21 07/03/23 mg-copper 1 ji-roqzoh-yetbuy chew tablet (PreserVision AREDS-2) diltiazem HCl 360 mg 360 mg PO DAILY 09/12/22 07/03/23 capsule,extended release 24 hr Previous Rx's Medication Instructions Recorded warfarin 5 mg tablet See Rx Instructions .Route 09/15/22 .COMPLEX #135 tabs cholecalciferol (vitamin D3) 25 25 mcg PO DAILY #90 caps 11/15/22 mcg (1,000 unit) capsule amoxicillin 500 mg tablet 2,000 mg (4 x 500 mg) PO ONCE #8 11/22/22 tabs atorvastatin 20 mg tablet 20 mg PO BEDTIME #90 tabs 03/16/23 hydrochlorothiazide 25 mg tablet 25 mg PO DAILY #90 tabs 03/20/23 lancets (Coaguchek Lancets) #100 ea 04/14/23 Coagucheck XS Misc #1 kit 04/17/23 prothrombin time test strips #18 ea 04/17/23 (Coaguchek XS strips) potassium chloride 20 mEq 20 meq PO DAILY #90 tabs 05/15/23 tablet,extended release losartan 100 mg tablet 100 mg PO DAILY #90 tabs 06/05/23 fluticasone propionate 50 2 spray intranasal BEDTIME #16 07/03/23 mcg/actuation nasal grams spray,suspension Allergies Allergy/AdvReac Type Severity Reaction Status Date / Time No Known Drug Allergies Allergy Verified 08/20/23 13:09 Patient History Medical History Impaired glucose tolerance Class 2 obesity with body mass index (BMI) of 38.0 to 38.9 in adult Osteoarthritis of hips, bilateral Thrombocytopenia [facility] current use of anticoagulant Mixed hyperlipidemia History of adenomatous polyp of colon Wears glasses Osteomyelitis (~2020) Chronic back pain Ankle pain History of elevated PSA BPH (benign prostatic hyperplasia) (~2011) Endocarditis (~2019) Hypertension (~2014) Atrial fibrillation (~2017) Surgical History Hx of aortic valve replacement, mechanical (~2019) Anesthesia Status post ablation of atrial fibrillation (~2019) History of cardioversion (~2017) History of total hip replacement (~2011) S/P TURP (~2020) Family History Father Cancer History of heart disease Hyperlipidemia Mother Cancer Grandmother Rheumatoid arthritis Grandfather Cancer Diabetes mellitus Hypertension Social History Smoking Status: Never smoker Smoking Status: Never smoker alcohol intake frequency: 0-2 drinks per day Alcohol type: beer Substance Use Type: does not use Exam Initial Vital Signs Initial Vital Signs: Vital Signs Temperature 97.6 F 08/20/23 13:01 Pulse Rate 64 08/20/23 13:01 Respiratory Rate 20 08/20/23 13:01 Blood Pressure 170/83 H 08/20/23 13:01 Pulse Oximetry 96 08/20/23 13:01 Oxygen Delivery Method Room Air 08/20/23 13:01 GENERAL: Alert pleasant year old and in no acute distress. HEENT: Head atraumatic,EOMI, pupils reactive, face symmetric, moist mucous membranes CARDIOVASCULAR: Mechanical valve regular no RESPIRATORY: Breath sounds equal bilaterally, no wheezes rales or rhonchi. EXTREMITIES: Normal range of motion, no clubbing or edema. Neurovascularly intact NEUROLOGICAL: Alert and oriented x4.Normal gait and speech. Cranial nerves II through XII grossly intact. SKIN: Warm, dry, no laceration, no petechiae, no rashes or lesions. Course Vital Signs Vital signs: Vital Signs - 8 hr 08/20/23 13:01 08/20/23 15:13 Temperature 97.6 F Pulse Rate 64 65 Respiratory Rate 20 16 Blood Pressure 170/83 H 175/81 H Pulse Oximetry 96 98 Oxygen Delivery Method Room Air Room Air MDM - Recheck/Abnormal Lab/Rx MDM Narrative Medical decision making narrative: Patient is 68-year-old male extremely anxious about not being able to sleep. Although it he has had this problem off and on for some time but maybe not consistently for last 5 days. He is tried melatonin we talked about Benadryl and Unisom which are [id number]. Possible Ambien. Offered 1 tablet of Ativan for 1 night sleep but he was anxious about taking that. We also talked about finding the correct device for his CPAP. This time I do not think he needs any workup in the emergency department his heart sounds regular heart rate is within normal limits in his asymptomatic. Discharge Plan Departure Patient Disposition: Home Clinical Impression: Insomnia Instructions: DI for Insomnia Activity Restrictions/Additional Instructions: *You have been diagnosed with insomnia *What to do: At this time do recommend that you take Unisom [id number], hopefully it works for you you may take it a couple nights in a row but I would not take it more than 1 week. I do also recommend that you find the right device for her CPAP machine May talk to PCP in regards to other medications such as Ambien for sleep May also need an EGD and swallow study *Continue to take medications as directed *Follow up with your primary care provider in 2-3 days or call [phone] *Return to ER if you should have any new, worsening or concerning symptoms Prescriptions: No Action warfarin 5 mg tablet See Rx Instructions .ROUTE .COMPLEX Qty: 135 3RF Dose Instruction: Take 1.5 tablets (7.5 mg) daily, or as directed. Rx Instructions: Take 1.5 tablets (7.5 mg) daily, or as directed. cholecalciferol (vitamin D3) 25 mcg (1,000 unit) capsule 25 mcg PO DAILY Qty: 90 3RF amoxicillin 500 mg tablet 2,000 mg PO ONCE Qty: 8 3RF Rx Instructions: 4 tabs once 1-2 hours before dental procedure hydrochlorothiazide 25 mg tablet 25 mg PO DAILY Qty: 90 3RF (DME) lancets [Coaguchek Lancets] Misc See Rx Instructions .Route Qty: 100 3RF Rx Instructions: As directed (DME) Coagucheck XS Misc See Rx Instructions .Route .MEDSUPPLY Qty: 1 0RF Rx Instructions: Use to test INR at home in consultation with AMS to keep INR in target range. Results Reporting: Call or by Secure Message (DME) Coaguchek XS Strip See Rx Instructions .ROUTE .COMPLEX Qty: 18 12RF Dose Instruction: Use or as directed by AMS to keep INR in target range. Results Reporting: Call or by Secure Message. Rx Instructions: Use or as directed by AMS to keep INR in target range. Results Reporting: Call or by Secure Message. potassium chloride 20 mEq tablet extended release 20 meq PO DAILY Qty: 90 3RF losartan 100 mg tablet 100 mg PO DAILY Qty: 90 3RF diltiazem HCl 360 mg capsule,extended release 24hr 360 mg PO DAILY fluticasone propionate 50 mcg/actuation spray,suspension 2 spray intranasal BEDTIME Qty: 16 4RF Rx Instructions: administer into each nostril PreserVision AREDS-2 250-90-40-1 mg tablet,chewable 1 tab PO QAM AND QPM atorvastatin 20 mg tablet 20 mg PO BEDTIME Qty: 90 3RF Referrals: Clifton Leung MD [Primary Care Provider] - Stand Alone Forms: Patient Portal/API
[2023-08-20 15:13] VITALS: BP 175/81; PULSE 65; RESP 16; O2SAT 98
== END 2023-08-20 15:17 | disposition home or self-care (01) ==
PROVIDERS: Emergency Provider Emergency Medicine; PCP Internal Medicine
DX: G47.00 Insomnia, unspecified (principal); Z95.2 Presence of prosthetic heart valve
CPT/HCPCS: 99281

== ENCOUNTER 2024-02-07 13:58 | Emergency (ER) | payer OTHER, SELFPAY ==
[2024-02-07] VITALS (19 sets, daily range): BP systolic 164–204; BP diastolic 73–118; PULSE 81–136; RESP 12–18; TEMP 36.8; O2SAT 94–99; BMI 37.0
--- NOTE | 2024-02-07 14:07 | DI.RAD.S_ITS ---
PROCEDURE: XR CHEST 1V INDICATIONS: chest pain TECHNIQUE: One view of the chest was acquired. COMPARISON: None. FINDINGS: Surgical changes and devices: Sternotomy wires, presumed prior CABG.. Lungs and pleura: Lungs are clear. No pleural effusions or pneumothorax. Mediastinum: Mediastinal contours appear normal. Heart size is normal. Bones and chest wall: No suspicious bony lesions. Overlying soft tissues appear unremarkable. IMPRESSION: No acute cardiopulmonary abnormality is seen. Presumed prior CABG. Dictated by: Jr Christine M.D. on 02/07/2024 at 15:23 Approved by: Jr Christine M.D. on 02/07/2024 at 15:24
--- NOTE | 2024-02-07 14:12 | EKG_ITS ---
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
[2024-02-07 14:26] LABS: INR 3.3 (0.9-1.3); Prothrombin Time 35.8 SECONDS (9.4-12.5)
[2024-02-07 14:29] LABS: PTT Partial Thromboplastin Tim 50 SECONDS (25.1-36.5)
[2024-02-07 14:31] LABS: Alanine Aminotransferase 23 IU/L (<50); Albumin 4.5 g/dL (3.5-5.0); Albumin Globulin Ratio 1.6 (1.0-2.8); Alkaline Phosphatase 83 U/L (38-126); Aspartate Aminotransferase 39 IU/L (17-59); BUN Creatinine Ratio 21.4 (6-22); Bilirubin Total 1.1 mg/dL (0.2-1.3); Blood Urea Nitrogen 24 mg/dL (9-20); Calcium 9.4 mg/dL (8.4-10.2); Carbon Dioxide 21 mmol/L (22-32); Chloride 106 mmol/L (98-107); Creatine Kinase 107 U/L (55-170); Estimated Glomerular Filt Rate > 60 mL/min (>60); Globulin 2.8 g/dL (1.7-4.1); Glucose 111 mg/dL (80-110); HEMOLYSIS 84 (0-50); Lipase 104 U/L (23-300); Magnesium 1.8 mg/dL (1.6-2.3); Sodium 136 mmol/L (137-145); Total Protein 7.3 g/dL (6.3-8.2)
[2024-02-07 14:38] LABS: Add Manual Diff / Slide Review NO; Basophils Absolute Auto 100 /uL (0-100); Basophils Percent Auto 0.7 % (0-2); Eosinophils Absolute Auto 100 /uL (0-450); Eosinophils Percent Auto 1.6 % (2-4); Hematocrit 45.4 % (41-53); Hemoglobin 15.5 g/dL (13.5-17.5); Lymphocytes Absolute Auto 1100 /uL (1100-4500); Lymphocytes Percent Auto 12.1 % (25-40); Mean Corpuscular HGB Conc 34.1 % (30-36); Mean Corpuscular Hemoglobin 30.4 PG (26-34); Mean Corpuscular Volume 89.2 fL (80-100); Monocytes Absolute Auto 900 /uL (0-900); Monocytes Percent Auto 9.9 % (3-14); Neutrophils Absolute Auto 6800 /uL (1500-7000); Neutrophils Percent Auto 75.7 % (50-75); Platelet Count 124 X10^3/uL (150-400); Red Cell Distribution Width 14.5 % (11.6-14.8)
[2024-02-07 14:42] LABS: Troponin I 0.014 ng/mL (0.01-0.034)
--- NOTE | 2024-02-07 15:04 | ED_ITS ---
HPI - Arrhythmia/Palpitations General Chief Complaint: Arrhythmia/Palpitations Stated Complaint: Afib, low bp, high pulse, sent by [facility] Time Seen by Provider: 02/07/24 14:56 Source: patient Mode of arrival: Ambulatory History of Present Illness HPI narrative: 68-year-old male with history of atrial fibrillation diagnosed sometime pre COVID, had cardioversion procedure [facility] that was apparently successful, subsequently after 2021 sometime during the pandemic he had ablation procedure for atrial fibrillation complicated by endocarditis and eventual mechanical replacement of his aortic valve, subsequently on warfarin anticoagulation with goal INR 2.0-3.0 arrange, last INR checked last week 2.7 INR noted. He has had post AVR atrial fibrillation with rapid response, treated successfully with cardioversion couple of years ago here. He has some palpitations symptoms earlier today, had blood pressure elevation and low readings through the day today, prompting his visit. No chest pain or shortness of breath. Denies pain or numbness to face arm or leg. He is taking his warfarin medication regularly. Related Data Home Medications Medication Instructions Recorded Confirmed vit C 250 mg-E 90 mg-zinc 40 1 tab PO QAM AND QPM 04/06/21 02/05/24 mg-copper 1 [id number] chew tablet (PreserVision AREDS-2) Previous Rx's Medication Instructions Recorded amoxicillin 500 mg tablet 2,000 mg (4 x 500 mg) PO ONCE #8 11/22/22 tabs atorvastatin 20 mg tablet 20 mg PO BEDTIME #90 tabs 03/16/23 lancets (Coaguchek Lancets) #100 ea 04/14/23 Coagucheck XS Misc #1 kit 04/17/23 prothrombin time test strips #18 ea 04/17/23 (Coaguchek XS strips) potassium chloride 20 mEq 20 meq PO DAILY #90 tabs 05/15/23 tablet,extended release losartan 100 mg tablet 100 mg PO DAILY #90 tabs 06/05/23 cholecalciferol (vitamin D3) 25 25 mcg PO DAILY #90 caps 08/21/23 mcg (1,000 unit) capsule warfarin 5 mg tablet See Rx Instructions .Route 09/04/23 .COMPLEX #135 tabs trazodone 50 mg tablet 50 mg PO BEDTIME #90 tabs 12/14/23 omeprazole 40 mg capsule,delayed 40 mg PO DAILY #90 caps 12/25/23 release fluticasone propionate 50 2 spray intranasal BEDTIME #16 02/05/24 mcg/actuation nasal grams spray,suspension furosemide 20 mg tablet 20 mg PO DAILY #90 tabs 02/05/24 Allergies Allergy/AdvReac Type Severity Reaction Status Date / Time No Known Drug Allergies Allergy Verified 02/07/24 14:08 Review of Systems Review of Systems Narrative: see HPI Patient History Medical History (Updated 02/07/24 @ 17:16 by Zeke Jesus MD) Peripheral edema Insomnia Paroxysmal atrial fibrillation (~2017) Impaired glucose tolerance Class 2 obesity with body mass index (BMI) of 38.0 to 38.9 in adult Osteoarthritis of hips, bilateral 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 Mixed hyperlipidemia History of adenomatous polyp of colon Wears glasses Osteomyelitis (~2020) Chronic back pain Ankle pain History of elevated PSA BPH (benign prostatic hyperplasia) (~2011) Endocarditis (~2019) Hypertension (~2014) Surgical History (Updated 02/07/24 @ 17:16 by Zeke Jesus MD) Hx of aortic valve replacement, mechanical (~2019) Anesthesia Status post ablation of atrial fibrillation (~2019) History of cardioversion (~2017) History of total hip replacement (~2011) S/P TURP (~2020) Family History Father Cancer History of heart disease Hyperlipidemia Mother Cancer Grandmother Rheumatoid arthritis Grandfather Cancer Diabetes mellitus Hypertension Social History Smoking Status: Never smoker Smoking Status: Never smoker alcohol intake frequency: 0-2 drinks per day Alcohol type: beer Substance Use Type: does not use Exam Narrative Exam Narrative: GENERAL: Well-developed patient, in mild distress. HEAD: Atraumatic. Normocephalic. EYES: Pupils equal round and reactive. Extraocular motions intact. No scleral icterus. No injection or drainage. ENT: Nose without bleeding, purulent drainage. Throat without erythema, tonsillar hypertrophy or exudate. Airway patent. NECK: Trachea midline. Non tender CARDIOVASCULAR: Rapid rate irregular rhythm, systolic murmur with click consistent with reported aortic mechanical valve RESPIRATORY: Clear to auscultation. Breath sounds equal bilaterally. No wheezes, rales, or rhonchi. GASTROINTESTINAL: Abdomen soft, non-tender, nondistended. EXTREMITIES: No edema or joint tenderness. BACK: Nontender without deformity or crepitance. No flank tenderness. NEURO: AOx3. Motor functions grossly nonfocal SKIN: No rash or erythema of visible areas Initial Vital Signs Initial Vital Signs: Vital Signs Temperature 98.2 F 02/07/24 14:00 Pulse Rate 136 H 02/07/24 14:00 Respiratory Rate 18 02/07/24 14:00 Blood Pressure 204/107 H 02/07/24 14:00 Pulse Oximetry 94 02/07/24 14:00 Oxygen Delivery Method Room Air 02/07/24 14:00 Procedures Cardioversion Time of Cardioversion: 16:00 Consent Signed: Yes Indication: Atrial fibrillation with rapid ventricular response, chronic anticoagulation therapeutic, prior cardioversion, requests for cardioversion Stability: Stable Number of attempts (shocks): 1 Joules used: 200 Cardiac rhythm post-cardioversion: Normal sinus rhythm post-conversion, with unifocal PVC. See repeat EKG Notice:: Procedural sedation note also provided, etomidate conscious sedation, see separate note Procedural Sedation Time of procedure: 16:00 Consent signed: Yes Time out performed: Yes Indication: cardioversion ASA Class: I Mallampati Airway Classification: Class I Time of Last PO Intake: 12:00 Preparation: nurse monitoring applied, pulse oximeter, capnometry used, suction/airway equipment at bedside and IV secured IV Etomidate dose (mg): 10 ED Sedation Level: Moderate (Concious) Complications: none Additional Comments: IV etomidate sedation for electrical cardioversion AFib RVR, see separate cardioversion procedure note as well. Tolerated well, returned to preprocedural baseline mental status and neuro function. Course Orders Ordered: ED Orders 02/07/24 14:07 XR chest 1V Stat EKG-12 Lead Stat 02/07/24 14:10 Complete Blood Count AUTO DIFF Stat Comprehensive Metabolic Panel Stat Lipase Stat Magnesium Stat NT-proBNP (BNP-Adult 18+) Stat PTT Partial Thromboplastin Nicola Stat Prothrombin Time INR Stat Troponin & CK Cardiac Panel Stat 02/07/24 16:29 EKG-12 Lead Stat Discontinued Medications Etomidate (Etomidate 2 Mg/Ml 10 Ml Vial) 10 mg IV NOW ONE Stop: 02/07/24 15:35 Last Admin: 02/07/24 16:22 Dose: 10 mg Documented By: DKB Vital Signs Vital signs: Vital Signs - 8 hr 02/07/24 14:00 02/07/24 14:04 02/07/24 14:05 Temperature 98.2 F Pulse Rate 136 H 119 H Respiratory Rate 18 Blood Pressure 204/107 H 204/107 H Pulse Oximetry 94 96 Oxygen Delivery Method Room Air Oxygen Flow Rate 02/07/24 14:05 02/07/24 14:30 02/07/24 14:31 Temperature Pulse Rate 104 H 125 H Respiratory Rate Blood Pressure 164/103 H Pulse Oximetry 97 95 Oxygen Delivery Method Oxygen Flow Rate 02/07/24 14:31 02/07/24 15:00 02/07/24 15:01 Temperature Pulse Rate 131 H 127 H Respiratory Rate Blood Pressure 195/89 H Pulse Oximetry 96 97 Oxygen Delivery Method Oxygen Flow Rate 02/07/24 15:01 02/07/24 15:30 02/07/24 15:30 Temperature Pulse Rate 123 H 133 H Respiratory Rate 12 Blood Pressure 185/103 H Pulse Oximetry 95 95 Oxygen Delivery Method Oxygen Flow Rate 02/07/24 16:00 02/07/24 16:00 02/07/24 16:13 Temperature Pulse Rate 127 H Respiratory Rate Blood Pressure 193/118 H Pulse Oximetry 97 Oxygen Delivery Method Oxygen Flow Rate 2 02/07/24 16:26 02/07/24 16:26 02/07/24 16:30 Temperature Pulse Rate 86 Respiratory Rate 15 Blood Pressure 187/74 H Pulse Oximetry 97 Oxygen Delivery Method Nasal Cannula Oxygen Flow Rate 2 0 02/07/24 16:30 02/07/24 16:30 02/07/24 16:35 Temperature Pulse Rate 88 Respiratory Rate 16 Blood Pressure 180/103 H 183/82 H Pulse Oximetry 98 Oxygen Delivery Method Nasal Cannula Oxygen Flow Rate 2 02/07/24 16:35 02/07/24 16:40 02/07/24 16:40 Temperature Pulse Rate 85 81 Respiratory Rate 14 16 Blood Pressure 173/73 H Pulse Oximetry 99 98 Oxygen Delivery Method Oxygen Flow Rate 02/07/24 16:45 02/07/24 16:45 02/07/24 16:50 Temperature Pulse Rate 90 Respiratory Rate 16 Blood Pressure 169/77 H 172/77 H Pulse Oximetry 98 Oxygen Delivery Method Oxygen Flow Rate 02/07/24 16:50 02/07/24 16:55 02/07/24 16:55 Temperature Pulse Rate 86 89 Respiratory Rate 16 17 Blood Pressure 170/81 H Pulse Oximetry 99 98 Oxygen Delivery Method Oxygen Flow Rate 02/07/24 17:00 02/07/24 17:00 02/07/24 17:05 Temperature Pulse Rate 94 H Respiratory Rate 17 Blood Pressure 200/88 H 179/80 H Pulse Oximetry 98 Oxygen Delivery Method Oxygen Flow Rate 02/07/24 17:05 02/07/24 17:20 Temperature Pulse Rate 94 H 90 Respiratory Rate 14 Blood Pressure 198/100 H Pulse Oximetry 99 97 Oxygen Delivery Method Room Air Oxygen Flow Rate MDM - Arrhythmia/Palpitations Medical Records Attestation: I reviewed the patient's medical records. Medical records narrative: White blood cell count 9000, hemoglobin 15.5, platelets adequate. Sodium 136 otherwise unremarkable basic metabolic panel. Troponin 0.014 low normal noted. Liver functions unremarkable. Lab Data Attestation: I reviewed the patient's lab results. Lab results narrative: White blood cell count 9000, hemoglobin 15.5, platelets adequate. Liver functions unremarkable. Lipase normal. BNP 800 noted. Troponin 0.014 not elevated 02/07/24 14:10 02/07/24 14:10 Labs: Lab Results 02/07/24 Range/Units 14:10 WBC 9.0 (4.5-11.0) X10^3/uL RBC 5.10 (4.5-5.9) X10^6/uL Hgb 15.5 (13.5-17.5) g/dL Hct 45.4 (41-53) % MCV 89.2 (80-100) fL MCH 30.4 (26-34) PG MCHC 34.1 (30-36) % RDW 14.5 (11.6-14.8) % Plt Count 124 L (150-400) X10^3/uL Neut % (Auto) 75.7 H (50-75) % Lymph % (Auto) 12.1 L (25-40) % [place] % (Auto) 9.9 (3-14) % Eos % (Auto) 1.6 L (2-4) % Baso % (Auto) 0.7 (0-2) % Neut # (Auto) 6800 (8293-5090) /uL Lymph # (Auto) 1100 (5658-0979) /uL [place] # (Auto) 900 (0-900) /uL Eos # (Auto) 100 (0-450) /uL Baso # (Auto) 100 (0-100) /uL PT 35.8 H (9.4-12.5) SECONDS INR 3.3 H (0.9-1.3) APTT 50 H (25.1-36.5) SECONDS Sodium 136 L (137-145) mmol/L Potassium 4.0 (3.4-5.1) mmol/L Chloride 106 (98-107) mmol/L Carbon Dioxide 21 L (22-32) mmol/L BUN 24 H (9-20) mg/dL Creatinine 1.12 (0.66-1.25) mg/dL Estimated GFR > 60 (>60) mL/min BUN/Creatinine Ratio 21.4 (6-22) Glucose 111 H (80-110) mg/dL Calcium 9.4 (8.4-10.2) mg/dL Magnesium 1.8 (1.6-2.3) mg/dL Total Bilirubin 1.1 (0.2-1.3) mg/dL AST 39 (17-59) IU/L ALT 23 (<50) IU/L Alkaline Phosphatase 83 (38-126) U/L Total Creatine Kinase 107 (55-170) U/L Troponin I 0.014 (0.01-0.034) ng/mL NT-Pro-B Natriuret Pep 813 H (<125) pg/mL Total Protein 7.3 (6.3-8.2) g/dL Albumin 4.5 (3.5-5.0) g/dL Globulin 2.8 (1.7-4.1) g/dL Albumin/Globulin Ratio 1.6 (1.0-2.8) Lipase 104 (23-300) U/L ECG Data Attestation: I personally reviewed and interpreted this ECG as follows: Interpretation: 1412, atrial fibrillation with ventricular response rate 117, no obvious ST segment elevation or depression changes. QRS 92, QTC 454. 1632, normal sinus rhythm with rate 85, unifocal PVC noted. No obvious ST segment elevation or depression changes. ME 190, QRS 88, QTC 442. MDM Narrative Medical decision making narrative: History of atrial fibrillation, aortic mechanical valve on chronic warfarin anticoagulation, prior cardioversion successful in the past. Atrial fibrillation on monitor an EKG, with rapid ventricular response, normotensive. Labs sent, INR 3.3 not subtherapeutic. We did discuss options including cardioversion, he prefers trial of cardioversion. IV etomidate then synchronized 200 joules cardioversion single shock, converted to normal sinus rhythm, stayed in normal sinus rhythm, documented in repeat EKG. Patient improved from his sedation to preprocedure baseline. Patient subsequently was able to ambulate without problems in the emergency department, took oral fluids. He wanted to go home, advised to follow up with his production laborer and call office tomorrow. Stable, improved. Home with family. Return precautions discussed. Critical Care Time Critical Care Time Critical Care Time: Yes Total Critical Care Time: 35 Attestation: The high probability of a clinically significant, sudden or life threatening deterioration of the [cardiopulmonary] system(s) required my full and direct attention, intervention and personal management. Fast rate atrial fibrillation, cardioverted to normal sinus rhythm intervention. The aggregate critical care time was [35] minutes. This time is in addition to time spent performing reported procedures but includes the following: [x] Data Review and interpretation [x] Patient assessment and monitoring of vital signs [x] Documentation [x] Medication orders and management Discharge Plan Departure Patient Disposition: Home Clinical Impression: Atrial fibrillation with rapid ventricular response, Encounter for cardioversion procedure, Chronic anticoagulation, Hx of aortic valve replacement, mechanical, History of atrial fibrillation Activity Restrictions/Additional Instructions: History of atrial fibrillation, prior cardioversion events successful, also complicated history of endocarditis and eventual mechanical aortic valve replacement, on chronic warfarin anticoagulation therapy. Labile blood pressure measurements at home prompted ER evaluation, found to be in atrial fibrillation with rapid ventricular response, blood pressure adequate here. INR 3.3 not subtherapeutic. You wanted to have cardioversion procedure here. IV sedation, single shock cardioversion, successful conversion to normal sinus rhythm. Subsequently you are able to return post sedation to your baseline, ambulate, take oral fluids. You would like to go home. Follow up with your regular production laborer, call for appointment tomorrow morning, to see if there is any other therapies or any further attempts at ablation or other follow up recommendations at this time, otherwise continue your current chronic medication regimen including your warfarin anticoagulation. Return earlier to this/nearest emergency department for any change worsening symptoms or any concerns prior Prescriptions: No Action amoxicillin 500 mg tablet 2,000 mg PO ONCE Qty: 8 3RF Rx Instructions: 4 tabs once 1-2 hours before dental procedure (DME) lancets [Coaguchek Lancets] Misc See Rx Instructions .Route Qty: 100 3RF Rx Instructions: As directed (DME) Coagucheck XS Misc See Rx Instructions .Route .MEDSUPPLY Qty: 1 0RF Rx Instructions: Use to test INR at home in consultation with AMS to keep INR in target range. Results Reporting: Call or by Secure Message (DME) Coaguchek XS Strip See Rx Instructions .ROUTE .COMPLEX Qty: 18 12RF Dose Instruction: Use or as directed by AMS to keep INR in target range. Results Reporting: Call or by Secure Message. Rx Instructions: Use or as directed by AMS to keep INR in target range. Results Reporting: Call or by Secure Message. potassium chloride 20 mEq tablet extended release 20 meq PO DAILY Qty: 90 3RF losartan 100 mg tablet 100 mg PO DAILY Qty: 90 3RF cholecalciferol (vitamin D3) 25 mcg (1,000 unit) capsule 25 mcg PO DAILY Qty: 90 3RF warfarin 5 mg tablet See Rx Instructions .ROUTE .COMPLEX Qty: 135 3RF Protocol: Dose Management Condition: Monday Dose/Route: 7.5 mg Instruction: 1.5 x 5 mg tablets Condition: Monday Dose/Route: 7.5 mg Instruction: 1.5 x 5 mg tablets Condition: Monday Dose/Route: 7.5 mg Instruction: 1.5 x 5 mg tablets Condition: Monday Dose/Route: 7.5 mg Instruction: 1.5 x 5 mg tablets Condition: Dose/Route: 7.5 mg Instruction: 1.5 x 5 mg tablets Condition: Monday Dose/Route: 7.5 mg Instruction: 1.5 x 5 mg tablets Condition: Monday Dose/Route: 7.5 mg Instruction: 1.5 x 5 mg tablets Protocol Text: Adjustment Start Date: Monday01/31/24 INR Value: 2.7 INR Date: 01/31/24 Recheck Date: 02/28/24 Dose Instruction: Take 1.5 tablets (7.5 mg) daily, or as directed. Rx Instructions: Take 1.5 tablets (7.5 mg) daily, or as directed. trazodone 50 mg tablet 50 mg PO BEDTIME Qty: 90 3RF omeprazole 40 mg capsule,delayed release(DR/EC) 40 mg PO DAILY Qty: 90 1RF fluticasone propionate 50 mcg/actuation spray,suspension 2 spray intranasal BEDTIME Qty: 16 4RF Rx Instructions: administer into each nostril PreserVision AREDS-2 250-90-40-1 mg tablet,chewable 1 tab PO QAM AND QPM atorvastatin 20 mg tablet 20 mg PO BEDTIME Qty: 90 3RF Hold Instructions: leg furosemide 20 mg tablet 20 mg PO DAILY Qty: 90 3RF Referrals: Clifton Leung MD [Primary Care Provider] - Stand Alone Forms: Patient Portal/API/Survey
[2024-02-07 15:07] LABS: NT-proBNP (BNP-Adult 18+) 813 pg/mL (<125)
[2024-02-07] MEDS: ETOMIDATE 2 MG/ML 10 ML VIAL 10 MG IV (16:22)
--- NOTE | 2024-02-07 16:29 | EKG_ITS ---
[address], [place] [address] Test Date: 2024-02-07 Pat Name: Rafal Vyas Department: [facility] Room: Gender: Male Procurement Intern: carmen : 1955 Requested By: Order Number: [id number] Reading MD: Saul Jacques Measurements Intervals [place] Rate: 85 P: 88 MI: 190 QRS: -36 QRSD: 88 T: 48 QT: 372 QTc: 442 Interpretive Statements Sinus rhythm with occasional premature ventricular complexes Left axis deviation Pulmonary disease pattern Electronically Signed On 02-08-2024 17:32:16 PST by Saul Jacques
--- NOTE | 2024-02-07 16:38 | RT ---
RT bedside assist/standby for con. sedation for cardioversion. Patient ETCO2 monitored throughout procedure. No adverse reactions respiratory reactions to procedure.
== END 2024-02-07 17:20 | disposition home or self-care (01) ==
PROVIDERS: Emergency Provider Emergency Medicine; PCP Internal Medicine
DX: I48.20 Chronic atrial fibrillation, unspecified (principal); Z79.899 Other long term (current) drug therapy; I10 Essential (primary) hypertension; Z79.01 Long term (current) use of anticoagulants; Z86.79 Personal history of other diseases of the circulatory system; Z95.2 Presence of prosthetic heart valve
CPT/HCPCS: 36415; 71045; 80053; 82550; 83690; 83735; 83880; 84484; 85025; 85610; 85730; 92960; 93005; 99152; 99285; 99291

== ENCOUNTER → 2024-02-20 09:09 | Outpatient (CLI) | payer OTHER, SELFPAY ==
[2024-02-20 11:03] LABS: Add Manual Diff / Slide Review NO; Basophils Absolute Auto 0 /uL (0-100); Basophils Percent Auto 0.7 % (0-2); Eosinophils Absolute Auto 200 /uL (0-450); Eosinophils Percent Auto 2.4 % (2-4); Hematocrit 44.5 % (41-53); Hemoglobin 15.3 g/dL (13.5-17.5); Lymphocytes Absolute Auto 1000 /uL (1100-4500); Lymphocytes Percent Auto 15.7 % (25-40); Mean Corpuscular HGB Conc 34.4 % (30-36); Mean Corpuscular Hemoglobin 30.2 PG (26-34); Mean Corpuscular Volume 87.7 fL (80-100); Monocytes Absolute Auto 500 /uL (0-900); Monocytes Percent Auto 8.8 % (3-14); Neutrophils Absolute Auto 4500 /uL (1500-7000); Neutrophils Percent Auto 72.4 % (50-75); Platelet Count 119 X10^3/uL (150-400); Red Blood Cell Count 5.07 X10^6/uL (4.5-5.9); Red Cell Distribution Width 14.2 % (11.6-14.8); White Blood Cell Count 6.2 X10^3/uL (4.5-11.0)
[2024-02-20 11:15] LABS: INR 2.6 (0.9-1.3); Prothrombin Time 28.4 SECONDS (9.4-12.5)
[2024-02-20 11:25] LABS: Alanine Aminotransferase 23 IU/L (<50); Albumin 4.1 g/dL (3.5-5.0); Albumin Globulin Ratio 1.4 (1.0-2.8); Alkaline Phosphatase 68 U/L (38-126); Aspartate Aminotransferase 30 IU/L (17-59); BUN Creatinine Ratio 16.8 (6-22); Blood Urea Nitrogen 18 mg/dL (9-20); Calcium 9.6 mg/dL (8.4-10.2); Carbon Dioxide 29 mmol/L (22-32); Chloride 102 mmol/L (98-107); Cholesterol 142 mg/dL (140-199); Estimated Glomerular Filt Rate > 60 mL/min (>60); Globulin 2.9 g/dL (1.7-4.1); Glucose 99 mg/dL (80-110); HDL Cholesterol 48 mg/dL (40-60); HEMOLYSIS < 15 (0-50); LDL Cholesterol Calculated 79 mg/dL (<100); Potassium 3.9 mmol/L (3.4-5.1); Sodium 136 mmol/L (137-145); Triglycerides 73 mg/dL (35-150)
[2024-02-20 11:40] LABS: Free T4, Direct Thyroxine 1.31 ng/dL (0.78-2.19)
[2024-02-20 11:54] LABS: Thyroid Stimulating Hormone 2.09 uIU/mL (0.47-4.68)
== END ==
LOC: LAB 09:10
PROVIDERS: PCP Internal Medicine; Referring Provider Internal Medicine; Visit Provider Internal Medicine
DX: I10 Essential (primary) hypertension (principal); I48.0 Paroxysmal atrial fibrillation; E78.2 Mixed hyperlipidemia; Z79.01 Long term (current) use of anticoagulants; R60.9 Edema, unspecified; R73.02 Impaired glucose tolerance (oral); E03.9 Hypothyroidism, unspecified
CPT/HCPCS: 36415; 80053; 80061; 84439; 84443; 85025; 85610

== ENCOUNTER → 2024-03-11 09:22 | Outpatient (CLI) | payer OTHER, SELFPAY ==
[2024-03-11 10:06] LABS: Hematocrit 44.4 % (41-53); Hemoglobin 15.1 g/dL (13.5-17.5); Mean Corpuscular HGB Conc 34.1 % (30-36); Mean Corpuscular Hemoglobin 30.1 PG (26-34); Mean Corpuscular Volume 88.1 fL (80-100); Platelet Count 114 X10^3/uL (150-400); Red Blood Cell Count 5.04 X10^6/uL (4.5-5.9); White Blood Cell Count 8.1 X10^3/uL (4.5-11.0)
[2024-03-11 10:20] LABS: BUN Creatinine Ratio 20.2 (6-22); Blood Urea Nitrogen 25 mg/dL (9-20); Calcium 9.4 mg/dL (8.4-10.2); Carbon Dioxide 29 mmol/L (22-32); Chloride 105 mmol/L (98-107); Estimated Glomerular Filt Rate > 60 mL/min (>60); Glucose 100 mg/dL (80-110); HEMOLYSIS < 15 (0-50); Sodium 141 mmol/L (137-145)
[2024-03-11 10:27] LABS: NT-proBNP (BNP-Adult 18+) 293 pg/mL (<125)
== END ==
PROVIDERS: PCP Internal Medicine; Referring Provider Internal Medicine Cardiovascular Disease; Visit Provider Internal Medicine Cardiovascular Disease
DX: I10 Essential (primary) hypertension (principal); I48.19 Other persistent atrial fibrillation
CPT/HCPCS: 36415; 80048; 83880; 85027

== ENCOUNTER → 2024-03-26 13:46 | Outpatient (CLI) | payer OTHER, SELFPAY ==
--- NOTE | 2024-03-26 13:49 | DI.ECHO.S_ITS ---
[facility] +---------+ Hospital : : [id number] : [place] : : [id number] : : Phone: [phone] Echocardiogram Report + + :Name: LETHA KLEIN Study Date: 03/26/2024 Height: 73 in : :Hospital ReadingLocation: Weight: 273 lb: : Gender: Male BSA: 2.5 m2 : :: 1955 Age: 68 yrs : :Reason For Study: EDEMA/ ATRIAL FIBRILLATION : :Ordering Physician: SUSHIL, : :LOBO [place] Performed By: Kyleigh Lopez : :Referring: LOBO LING : + + Interpretation Summary 1) Mildly increased left ventricular thickness (concentric) with normal size and normal systolic function (EF 55-60%). 2) Normal right ventricular size and function. 3) There is a mechanical aortic valve that is well seated and opens well (mean gradient 5mmHg). There is trace aortic regurgitation. 4) Compared to the Echo done 08/02/2021, no significant change. Procedure: A two-dimensional transthoracic echocardiogram with color flow and Doppler was performed. The study quality was technically difficult. Comparison is made with the echocardiogram of 08/02/2021. The patient was in sinus bradycardia with heart rates between 50-63 bpm during the exam. Left Ventricle: The left ventricle is normal in size. Left ventricular wall thickness is mildly increased. The ejection fraction is estimated to be 55- 60%. Septal motion is consistent with post-operative state. Right Ventricle: The right ventricle is grossly normal size. The right ventricle is not well visualized. The right ventricular systolic function is normal. Atria: The left atrium is moderately dilated. Right atrial size is normal. There is no Doppler evidence for an interatrial shunt. Mitral Valve: The mitral valve leaflets appear to open well. There is mild mitral regurgitation. Aortic Valve: There is a mechanical aortic valve. The prosthetic aortic valve is well-seated. There is trace intravalvular regurgitation through the prosthetic aortic valve. The peak aortic velocity is 1.68 m/sec. The aortic valve mean gradient is 5.3 mmHg. Tricuspid Valve: The tricuspid valve leaflets are thin and pliable. There is trace tricuspid regurgitation. Pulmonary artery pressures cannot be estimated because of the lack of a measurable TR jet velocity. Pulmonic Valve: The pulmonic valve is not well visualized. There is no pulmonic valvular regurgitation. Great Vessels: The ascending aorta is at the upper limits of normal in size. The IVC is dilated (diameter is greater than 2.1 cm) yet it collapses greater than 50% with a sniff. This suggests a right atrial pressure of 8 mm Hg. Pericardium/ Pleura There is a trivial pericardial effusion noted. There is no pleural effusion. MMode/2D Measurements & Calculations LVIDd: 5.1 cm LVOT diam: 2.3 cm LVIDs: 3.6 cm asc Aorta Diam: 3.7 cm FS: 28.4 % IVSd: 1.1 cm LVPWd: 1.0 cm LV [place]. diameter/BSA (cm/m^2): 2.1 LV sys. diameter/BSA (cm/m^2): 1.5 LA A2 area: 28.5 cm2 RA long axis: 5.8 cm LA A4 area: 26.9 cm2 RA area: 20.0 cm2 LA length (vol): 6.2 cm RA vol: 58.3 ml LA vol: 104.9 ml RA : 23.7 ml/m2 LA vol index: 42.7 ml/m2 IVC diam: 2.3 cm TAPSE: 2.0 cm Doppler Measurements & Calculations Ao V2 max: 168.2 cm/sec LVOT Max Kelvin: 78.3 cm/sec Ao V2 mean: 107.8 cm/sec LV V1 max P.4 mmHg Ao max P.3 mmHg LV V1 VTI: 20.2 cm Ao mean P.3 mmHg JONI(I,D): 2.3 cm2 Ao V2 VTI: 37.7 cm JONI(V,D): 2.0 cm2 sev ratio: 0.53 JONI indexed to BSA (cm^2/m^2): 0.92 MV E max kelvin: 91.6 cm/sec TR max kelvin: 325.3 cm/sec MV A max kelvin: 31.2 cm/sec TR max P.3 mmHg MV E/A: 2.9 PA V2 max: 66.5 cm/sec Med Peak E' Kelvin: 7.3 cm/sec PA V2 mean: 47.7 cm/sec E/E' med: 12.6 PA mean P.98 mmHg Lat Peak E' Kelvin: 11.2 cm/sec PA pr(Accel): 36.2 mmHg E/E' lat: 8.2 E/e' average: 10.4 MV dec time: 0.14 sec SV(LVOT): 85.7 ml Reading Physician:08:20 PM
== END ==
LOC: ECHO 13:48
PROVIDERS: PCP Internal Medicine; Referring Provider Internal Medicine; Visit Provider Internal Medicine
DX: I34.0 Nonrheumatic mitral (valve) insufficiency (principal); I48.0 Paroxysmal atrial fibrillation; R60.0 Localized edema; Z95.2 Presence of prosthetic heart valve
CPT/HCPCS: 93306

== ENCOUNTER → 2024-04-18 09:01 | Outpatient (CLI) | payer OTHER, SELFPAY ==
[2024-04-18 10:02] LABS: BUN Creatinine Ratio 18.9 (6-22); Blood Urea Nitrogen 21 mg/dL (9-20); Calcium 9.4 mg/dL (8.4-10.2); Carbon Dioxide 27 mmol/L (22-32); Chloride 104 mmol/L (98-107); Estimated Glomerular Filt Rate > 60 mL/min (>60); Glucose 100 mg/dL (80-110); HEMOLYSIS < 15 (0-50); Sodium 139 mmol/L (137-145)
[2024-04-18 10:10] LABS: NT-proBNP (BNP-Adult 18+) 459 pg/mL (<125)
== END ==
PROVIDERS: PCP Internal Medicine; Referring Provider Internal Medicine Cardiovascular Disease; Visit Provider Internal Medicine Cardiovascular Disease
DX: I50.32 Chronic diastolic (congestive) heart failure (principal)
CPT/HCPCS: 36415; 80048; 83880

== ENCOUNTER 2024-05-25 05:34 | Emergency (ER) | payer OTHER, SELFPAY ==
[2024-05-25] VITALS (15 sets, daily range): BP systolic 175–200; BP diastolic 78–90; PULSE 55–65; RESP 16–18; TEMP 36.2–36.7; O2SAT 95–98; BMI 34.4
--- NOTE | 2024-05-25 05:36 | ED.ABDPAIN ---
HPI - Abdominal Pain <Saul VivasDO annalise - Last Filed: 05/25/24 05:51> General Chief Complaint: Abdominal Pain Stated Complaint: Stomach/gallbladder pain Time Seen by Provider: 05/25/24 05:36 History of Present Illness HPI narrative: 69-year-old male past medical history of aortic valve replacement on warfarin, hypertension, hyperlipidemia, comes into the ED from home for evaluation of abdominal pain. Patient states that this started a few days ago, he believes that this is secondary to the new medication, Zepbound (tirzepatide) that he started a proximally 1 week ago by his photonics technician for weight loss. He states that he is having abdominal pain to the left side with bloating, dyspepsia, as well as constipation. Patient states that he did have his INR checked yesterday and it was 2.6. Patient denying any other symptoms such as headache visual disturbances chest pain shortness of breath fever chills or any other GI/ symptoms at this time. He states that 13 years ago he had known gallstones and is also concerned that this medication is causing gallbladder issues. He currently is not having any pain or discomfort at this time however he states that he feels like the pain to the left side of his abdomen worsens whenever he eats fatty foods. He states that he has not been able to contact his photonics technician Dr. Campbell who is the person who started him on tirzepatide. No trauma no falls. Related Data Home Medications Medication Instructions Recorded Confirmed vit C 250 mg-E 90 mg-zinc 40 1 tab PO QAM AND QPM 04/06/21 03/29/24 mg-copper 1 [id number] chew tablet (PreserVision AREDS-2) metoprolol succinate 50 mg 50 mg PO DAILY 02/19/24 03/29/24 tablet,extended release 24 hr empagliflozin 10 mg tablet 10 mg PO DAILY 03/29/24 03/29/24 (Jardiance) spironolactone 25 mg tablet 25 mg PO DAILY 03/29/24 03/29/24 Previous Rx's Medication Instructions Recorded atorvastatin 20 mg tablet 20 mg PO BEDTIME #90 tabs 03/16/23 Coagucheck XS Misc #1 kit 04/17/23 prothrombin time test strips #18 ea 04/17/23 (Coaguchek XS strips) cholecalciferol (vitamin D3) 25 25 mcg PO DAILY #90 caps 08/21/23 mcg (1,000 unit) capsule omeprazole 40 mg capsule,delayed 40 mg PO DAILY #90 caps 12/25/23 release fluticasone propionate 50 2 spray intranasal BEDTIME #16 02/05/24 mcg/actuation nasal grams spray,suspension trazodone 50 mg tablet 100 mg (2 x 50 mg) PO BEDTIME #180 03/01/24 tabs amoxicillin 500 mg tablet 2,000 mg (4 x 500 mg) PO ONCE #8 04/04/24 tabs lancets 21 gauge (BD Microtainer #100 ea 04/25/24 Lancet) warfarin 5 mg tablet See Rx Instructions .Route 05/09/24 .COMPLEX #135 tabs losartan 100 mg tablet 100 mg PO DAILY #90 tabs 05/24/24 Allergies Allergy/AdvReac Type Severity Reaction Status Date / Time No Known Drug Allergies Allergy Verified 03/29/24 11:31 Review of Systems <Saul Silvestre DO - Last Filed: 05/25/24 05:51> Review of Systems Narrative: General: Denies fever, chills, weight loss HEENT: Denies headache, eye drainage, eye irritation, head trauma, sore throat, voice change Cardiovascular: Denies any chest pain, palpitations, tachycardia Respiratory: Denies any shortness of breath, cough, wheeze, stridor GI/: Positive abdominal pain, bloating, denies nausea, vomiting, diarrhea, bright red blood per rectum, melanotic stools, urinary frequency, urinary retention, dysuria, hematuria MSK: Denies any joint pain, muscle pains, swelling Skin: Denies any rashes, lesions, discoloration Neuro: Denies any headache, lightheadedness, dizziness, fainting, weakness Psych: Denies SI/HI Patient History <DO Ten Arita Last Filed: 05/25/24 05:51> Medical History (Updated 05/25/24 @ 08:48 by Jemima Reece MD) Heart failure with preserved ejection fraction Peripheral edema Insomnia Paroxysmal atrial fibrillation (~2018) Impaired glucose tolerance Class 2 obesity with body mass index (BMI) of 38.0 to 38.9 in adult Osteoarthritis of hips, bilateral Thrombocytopenia terminal clerk current use of anticoagulant Mixed hyperlipidemia History of adenomatous polyp of colon Wears glasses Osteomyelitis (~2020) Chronic back pain Ankle pain History of elevated PSA BPH (benign prostatic hyperplasia) (~2011) Endocarditis (~2019) Hypertension (~2014) Surgical History Hx of aortic valve replacement, mechanical (~2019) Anesthesia Status post ablation of atrial fibrillation (~2019) History of cardioversion (~2017) History of total hip replacement (~2011) S/P TURP (~2020) Family History Father Cancer History of heart disease Hyperlipidemia Mother Cancer Grandmother Rheumatoid arthritis Grandfather Cancer Diabetes mellitus Hypertension Social History Smoking Status: Never smoker Smoking Status: Never smoker alcohol intake frequency: 0-2 drinks per day Alcohol type: beer Exam <Saul Silvestre DO - Last Filed: 05/25/24 05:51> Narrative Exam Narrative: General: Cooperative, comfortable, well-developed, not in acute distress HEENT: Normocephalic, atraumatic, PERRLA, normal sclera, eyelids normal, Neck: Active full range of motion, atraumatic Chest: Normal to inspection, negative crepitus, no overlying erythema ecchymosis Respiratory: Normal respiratory effort, not in acute respiratory distress, clear to auscultation bilaterally negative cough, wheeze, tachypnea, rhonchi, rales Cardiology: Regular rate rhythm negative gallop, murmur, rubs GI/: Normal to inspection, soft, nonrigid, no tenderness to palpation, exam deferred MSK: Full range of active range of motion of all 4 extremities, atraumatic Skin: No rashes lesions noted Neuro: Alert awake oriented x3, moves all 4 extremities spontaneously, cranial nerves intact, able to answer all questions appropriately follows commands appropriately Psych: Cooperative, negative suicidal or homicidal ideations Initial Vital Signs Initial Vital Signs: Vital Signs Pulse Rate 63 05/25/24 05:40 Pulse Oximetry 95 05/25/24 05:40 <Jemima Reece MD - Last Filed: 05/25/24 08:49> Initial Vital Signs Initial Vital Signs: Vital Signs Pulse Rate 63 05/25/24 05:40 Pulse Oximetry 95 05/25/24 05:40 Course <Saul Silvestre DO - Last Filed: 05/25/24 05:51> Orders Ordered: ED Orders 05/25/24 05:10 Complete Blood Count AUTO DIFF Stat Comprehensive Metabolic Panel Stat Lactate (Lactic Acid) Stat Lipase Stat MAG [Magnesium] Stat PT [Prothrombin Time INR] Stat PTT Partial Thromboplastin Nicola Stat 05/25/24 05:42 CT abdomen pelvis w con Stat Discontinued Medications Famotidine (Famotidine 20 Mg/2 Ml Vial) 20 mg IV NOW ONE Stop: 05/25/24 05:49 Last Admin: 05/25/24 05:55 Dose: 20 mg Documented By: MR Vital Signs Vital signs: Vital Signs - 8 hr 05/25/24 05:40 05/25/24 05:59 05/25/24 06:00 Temperature 97.1 F L Pulse Rate 63 65 Respiratory Rate 16 Blood Pressure 192/89 H 194/86 H Pulse Oximetry 95 96 Oxygen Delivery Method Room Air 05/25/24 06:00 05/25/24 06:30 05/25/24 06:31 Temperature Pulse Rate 63 56 L Respiratory Rate 16 Blood Pressure 178/81 H Pulse Oximetry 96 96 Oxygen Delivery Method Room Air 05/25/24 06:31 05/25/24 07:03 05/25/24 07:05 Temperature Pulse Rate 60 62 59 L Respiratory Rate 18 Blood Pressure Pulse Oximetry 97 97 97 Oxygen Delivery Method 05/25/24 07:05 05/25/24 07:26 05/25/24 07:26 Temperature Pulse Rate 65 Respiratory Rate Blood Pressure 186/83 H 200/82 H Pulse Oximetry 97 Oxygen Delivery Method 05/25/24 07:30 05/25/24 07:31 05/25/24 07:31 Temperature Pulse Rate 55 L 59 L Respiratory Rate Blood Pressure 181/78 H Pulse Oximetry 97 98 Oxygen Delivery Method <Jemima Reece MD - Last Filed: 05/25/24 08:49> Orders Ordered: ED Orders 05/25/24 05:10 Complete Blood Count AUTO DIFF Stat Comprehensive Metabolic Panel Stat Lactate (Lactic Acid) Stat Lipase Stat MAG [Magnesium] Stat PT [Prothrombin Time INR] Stat PTT Partial Thromboplastin Nicola Stat 05/25/24 05:42 CT abdomen pelvis w con Stat Discontinued Medications Famotidine (Famotidine 20 Mg/2 Ml Vial) 20 mg IV NOW ONE Stop: 05/25/24 05:49 Last Admin: 05/25/24 05:55 Dose: 20 mg Documented By: Vital Signs Vital signs: Vital Signs - 8 hr 05/25/24 05:40 05/25/24 05:59 05/25/24 06:00 Temperature 97.1 F L Pulse Rate 63 65 Respiratory Rate 16 Blood Pressure 192/89 H 194/86 H Pulse Oximetry 95 96 Oxygen Delivery Method Room Air 05/25/24 06:00 05/25/24 06:30 05/25/24 06:31 Temperature Pulse Rate 63 56 L Respiratory Rate 16 Blood Pressure 178/81 H Pulse Oximetry 96 96 Oxygen Delivery Method Room Air 05/25/24 06:31 05/25/24 07:03 05/25/24 07:05 Temperature Pulse Rate 60 62 59 L Respiratory Rate 18 Blood Pressure Pulse Oximetry 97 97 97 Oxygen Delivery Method 05/25/24 07:05 05/25/24 07:26 05/25/24 07:26 Temperature Pulse Rate 65 Respiratory Rate Blood Pressure 186/83 H 200/82 H Pulse Oximetry 97 Oxygen Delivery Method 05/25/24 07:30 05/25/24 07:31 05/25/24 07:31 Temperature Pulse Rate 55 L 59 L Respiratory Rate Blood Pressure 181/78 H Pulse Oximetry 97 98 Oxygen Delivery Method MDM - Abdominal Pain <Saul Silvestre DO - Last Filed: 05/25/24 05:51> Differential Diagnosis Differential diagnosis: Likely abdominal pain, constipation, diverticulitis, gastroenteritis, pancreatitis, small bowel obstruction and other (Cholelithiasis, cholecystitis, urinary tract infection, electrolyte abnormality, adverse drug reaction) Lab Data 05/25/24 05:10 05/25/24 05:10 Labs: Lab Results 05/25/24 Range/Units 05:10 WBC 7.8 (4.5-11.0) X10^3/uL RBC 5.20 (4.5-5.9) X10^6/uL Hgb 15.9 (13.5-17.5) g/dL Hct 46.2 (41-53) % MCV 88.8 (80-100) fL MCH 30.7 (26-34) PG MCHC 34.5 (30-36) % RDW 14.6 (11.6-14.8) % Plt Count 108 L (150-400) X10^3/uL Neut % (Auto) 67.3 (50-75) % Lymph % (Auto) 17.2 L (25-40) % [place] % (Auto) 12.3 (3-14) % Eos % (Auto) 2.5 (2-4) % Baso % (Auto) 0.7 (0-2) % Neut # (Auto) 5200 (9394-4022) /uL Lymph # (Auto) 1300 (7670-3370) /uL [place] # (Auto) 1000 H (0-900) /uL Eos # (Auto) 200 (0-450) /uL Baso # (Auto) 100 (0-100) /uL PT 32.2 H (9.4-12.5) SECONDS INR 2.9 H (0.9-1.3) APTT 51 H (25.1-36.5) SECONDS Sodium 138 (137-145) mmol/L Potassium 4.2 (3.4-5.1) mmol/L Chloride 103 (98-107) mmol/L Carbon Dioxide 26 (22-32) mmol/L BUN 20 (9-20) mg/dL Creatinine 1.20 (0.66-1.25) mg/dL Estimated GFR > 60 (>60) mL/min BUN/Creatinine Ratio 16.7 (6-22) Glucose 107 (80-110) mg/dL Lactate 0.7 (0.7-2.1) mmol/L Calcium 9.7 (8.4-10.2) mg/dL Magnesium 1.9 (1.6-2.3) mg/dL Total Bilirubin 1.0 (0.2-1.3) mg/dL AST 29 (17-59) IU/L ALT 21 (<50) IU/L Alkaline Phosphatase 57 (38-126) U/L Total Protein 7.3 (6.3-8.2) g/dL Albumin 4.6 (3.5-5.0) g/dL Globulin 2.7 (1.7-4.1) g/dL Albumin/Globulin Ratio 1.7 (1.0-2.8) Lipase 113 (23-300) U/L Point of care testing: Urine Dip Bedside Urine Glucose 1000 mg/dl Bedside Urine Bilirubin - Negative Bedside Urine Ketone - Negative Urine Specific [place] 1.01 Bedside Urine Occult Blood - Negative Bedside Urine pH 6 Bedside Urine Protein - Negative Bedside Urine Urobilinogen - Negative Bedside Urine Nitrite - Negative Bedside Urine Leukocytes - Negative Esterase MDM Narrative Medical decision making narrative: Patient is a 69-year-old male with a history of mechanical valve replacement on warfarin, hyperlipidemia, hypertension, presents to the emergency department from home for evaluation of abdominal pain, bloating, dyspepsia, states symptoms have been ongoing persistent since he started on Zepbound that was prescribed to him by his photonics technician for weight loss. Patient states that ever since he started taking this medication a proximally 1 week ago he started having abdominal pain bloating dyspepsia, also feels like he is constipated. Patient states symptoms are intermittent in nature does feel like eating fatty foods makes it worse. He states he has a known history of gallstones approximately 13 years ago has not had any issues with it since. Patient had lab work imaging performed here in the emergency department. 0700: Patient was signed out to Dr. Reece, final disposition pending CT scan result and re-evaluation <Jemima Reece MD - Last Filed: 05/25/24 08:49> Lab Data Labs: Lab Results 05/25/24 Range/Units 05:10 WBC 7.8 (4.5-11.0) X10^3/uL RBC 5.20 (4.5-5.9) X10^6/uL Hgb 15.9 (13.5-17.5) g/dL Hct 46.2 (41-53) % MCV 88.8 (80-100) fL MCH 30.7 (26-34) PG MCHC 34.5 (30-36) % RDW 14.6 (11.6-14.8) % Plt Count 108 L (150-400) X10^3/uL Neut % (Auto) 67.3 (50-75) % Lymph % (Auto) 17.2 L (25-40) % [place] % (Auto) 12.3 (3-14) % Eos % (Auto) 2.5 (2-4) % Baso % (Auto) 0.7 (0-2) % Neut # (Auto) 5200 (8457-0265) /uL Lymph # (Auto) 1300 (3583-7840) /uL [place] # (Auto) 1000 H (0-900) /uL Eos # (Auto) 200 (0-450) /uL Baso # (Auto) 100 (0-100) /uL PT 32.2 H (9.4-12.5) SECONDS INR 2.9 H (0.9-1.3) APTT 51 H (25.1-36.5) SECONDS Sodium 138 (137-145) mmol/L Potassium 4.2 (3.4-5.1) mmol/L Chloride 103 (98-107) mmol/L Carbon Dioxide 26 (22-32) mmol/L BUN 20 (9-20) mg/dL Creatinine 1.20 (0.66-1.25) mg/dL Estimated GFR > 60 (>60) mL/min BUN/Creatinine Ratio 16.7 (6-22) Glucose 107 (80-110) mg/dL Lactate 0.7 (0.7-2.1) mmol/L Calcium 9.7 (8.4-10.2) mg/dL Magnesium 1.9 (1.6-2.3) mg/dL Total Bilirubin 1.0 (0.2-1.3) mg/dL AST 29 (17-59) IU/L ALT 21 (<50) IU/L Alkaline Phosphatase 57 (38-126) U/L Total Protein 7.3 (6.3-8.2) g/dL Albumin 4.6 (3.5-5.0) g/dL Globulin 2.7 (1.7-4.1) g/dL Albumin/Globulin Ratio 1.7 (1.0-2.8) Lipase 113 (23-300) U/L Point of care testing: Urine Dip Bedside Urine Glucose 1000 mg/dl Bedside Urine Bilirubin - Negative Bedside Urine Ketone - Negative Urine Specific [place] 1.01 Bedside Urine Occult Blood - Negative Bedside Urine pH 6 Bedside Urine Protein - Negative Bedside Urine Urobilinogen - Negative Bedside Urine Nitrite - Negative Bedside Urine Leukocytes - Negative Esterase Imaging Data CT scan - abdomen/pelvis: Radiologist's Impression: Cholelithiasis with gallbladder sludge without acute cholecystitis. 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 This is a nonspecific finding but can be seen in the setting of mesenteric panniculitis MDM Narrative Medical decision making narrative: Patient is a 69-year-old male with a history of mechanical valve replacement on warfarin, hyperlipidemia, hypertension, presents to the emergency department from home for evaluation of abdominal pain, bloating, dyspepsia, states symptoms have been ongoing persistent since he started on Zepbound that was prescribed to him by his photonics technician for weight loss. Patient states that ever since he started taking this medication a proximally 1 week ago he started having abdominal pain bloating dyspepsia, also feels like he is constipated. Patient states symptoms are intermittent in nature does feel like eating fatty foods makes it worse. He states he has a known history of gallstones approximately 13 years ago has not had any issues with it since. Patient had lab work imaging performed here in the emergency department. 0700: Patient was signed out to Dr. Reece, final disposition pending CT scan result and re-evaluation 800 Dr Reece patient seen and independently evaluated. Notes imaging studies reviewed. Patient is anticoagulated complaining of waves of upper abdominal pain reminiscent of prior gallbladder complaints. He notes that it gets better with the voiding fat. It is also coincident with starting zepbound CT scan suggests no acute cholecystitis but he does have gallbladder sludge. Recommended discussing this with his primary care physician. He may benefit from HIDA scan as an outpatient. Scan also suggest constipation, we discussed MiraLax when he gets home until his bowels began to move to see if this alleviates his pain Have suggested that he hold his zepbound which was due today and discuss this with his primary care physician, he has an appointment scheduled for the Incidentally noted possible choledochal cyst we will need further discussion and outpatient review is directed by his primary care physician No indication of retroperitoneal hemorrhage or complication of his anticoagulant use Currently he does not have an acute abdomen, reviewed all of the details above, there was no indication for hospitalization or additional imaging. He is safe for discharge Discharge Plan Departure Patient Disposition: Home Clinical Impression: Gallbladder colic Abdominal pain Qualifiers: Abdominal location: unspecified location Qualified Code(s): R10.9 - Unspecified abdominal pain Constipation Qualifiers: Constipation type: unspecified constipation type Qualified Code(s): K59.00 - Constipation, unspecified Adverse reaction to drug Qualifiers: Encounter type: initial encounter Qualified Code(s): T50.905A - Adverse effect of unspecified drugs, medicaments and biological substances, initial encounter Instructions: DI for General Gallbladder Conditions Activity Restrictions/Additional Instructions: Thank you for coming in today Your workup does not show life-threatening abnormalities, overwhelming infection, kidney failure, liver failure or acute need for hospitalization or abdominal surgery Given all that, I have a couple of ideas on why you were hurting. 1. Gallbladder issues. The fact that you are pain response to fat suggest that eating is low-fat diet as possible make sense. You do not have acute gallbladder disease right now and you do not have gallstones. You do have sludge in your gallbladder and may not be functioning fully. Please talk to your outpatient provider about a possibility of scheduling a HIDA study, this is a nuclear medicine study that tells how well your gallbladder is actually functioning 2. His symptoms are fairly common side effects of Zepbound. I would recommend not taking your next dose until you talk to your primary physician next week 3. You do have quite a bit of stool and gas throughout your colon. Please use a full capful of MiraLax when you get home. If you do not have a bowel movement within an hour continue repeating until you do have a bowel movement. You can not overdose on MiraLax 4. There was an incidental finding on your CT scan of assist close to the tract that the gallbladder uses to empty. Please review this with your primary care provider to see what additional follow up they may recommend If you find that you are getting worse or develop any new symptoms, particularly fever or increased abdominal pain that does not resolve, please feel free to return to the emergency department for further evaluation. Prescriptions: No Action (DME) Dann Brown See Rx Instructions .Route .MEDSUPPLY Qty: 1 0RF Rx Instructions: Use to test INR at home in consultation with AMS to keep INR in target range. Results Reporting: Call or by Secure Message (DME) Elizabeth Haque See Rx Instructions .ROUTE .COMPLEX Qty: 18 12RF Dose Instruction: Use or as directed by AMS to keep INR in target range. Results Reporting: Call or by Secure Message. Rx Instructions: Use or as directed by AMS to keep INR in target range. Results Reporting: Call or by Secure Message. cholecalciferol (vitamin D3) 25 mcg (1,000 unit) capsule 25 mcg PO DAILY Qty: 90 3RF omeprazole 40 mg capsule,delayed release(DR/EC) 40 mg PO DAILY Qty: 90 1RF fluticasone propionate 50 mcg/actuation spray,suspension 2 spray intranasal BEDTIME Qty: 16 4RF Rx Instructions: administer into each nostril metoprolol succinate 50 mg tablet extended release 24 hr 50 mg PO DAILY Rx Instructions: Dr. Campbell amoxicillin 500 mg tablet 2,000 mg PO ONCE Qty: 8 3RF Rx Instructions: 4 tabs once 1-2 hours before dental procedure (DME) lancets [BD Microtainer Lancet] 21 gauge misc See Rx Instructions .ROUTE .COMPLEX Qty: 100 3RF Dose Instruction: As directed for INR testing Rx Instructions: As directed for INR testing warfarin 5 mg tablet See Rx Instructions .ROUTE .COMPLEX Qty: 135 3RF Protocol: Dose Management Condition: Monday Dose/Route: 7.5 mg Instruction: 1.5 x 5 mg tablets Condition: Monday Dose/Route: 5 mg Instruction: 1 x 5 mg tablet Condition: Monday Dose/Route: 7.5 mg Instruction: 1.5 x 5 mg tablets Condition: Monday Dose/Route: 5 mg Instruction: 1 x 5 mg tablet Condition: Dose/Route: 7.5 mg Instruction: 1.5 x 5 mg tablets Condition: Monday Dose/Route: 7.5 mg Instruction: 1.5 x 5 mg tablets Condition: Monday Dose/Route: 7.5 mg Instruction: 1.5 x 5 mg tablets Protocol Text: Adjustment Start Date: 05/23/24 INR Value: 2.6 INR Date: 05/23/24 Recheck Date: 06/06/24 Dose Instruction: Take 1.5 tablets (7.5 mg) daily, or as directed. Rx Instructions: Take 1 tablet (5mg) total on Monday's and Monday's. Take 1 1/2 tablet (7.5mg) total all other days; or as directed. losartan 100 mg tablet 100 mg PO DAILY Qty: 90 3RF trazodone 50 mg tablet 100 mg PO BEDTIME Qty: 180 3RF Jardiance 10 mg tablet 10 mg PO DAILY spironolactone 25 mg tablet 25 mg PO DAILY PreserVision AREDS-2 250-90-40-1 mg tablet,chewable 1 tab PO QAM AND QPM atorvastatin 20 mg tablet 20 mg PO BEDTIME Qty: 90 3RF Hold Instructions: leg Referrals: Clifton Leung MD [Primary Care Provider] - Stand Alone Forms: Patient Portal/API/Survey
--- NOTE | 2024-05-25 05:42 | DI.CT.S_ITS ---
PROCEDURE: CT ABDOMEN PELVIS W CON INDICATIONS: Abdominal pain TECHNIQUE: After the administration of intravenous contrast, axial sections acquired from the lung bases to the pubic symphysis. Coronal and sagittal reformats were performed. For radiation dose reduction, the following was used: automated exposure control, adjustment of mA and/or kV according to patient size. COMPARISON: None. FINDINGS: Image quality: Portions of the lower pelvis are suboptimally evaluated secondary to metallic streak artifact from hip arthroplasty. Lower Chest: No significant findings. ABDOMEN: Liver: No solid mass. Gallbladder: Distended with stone and sludge. No wall thickening. There is a cystic structure with rim calcification measuring 2.6 cm at the donnie hepatis. No ductal dilation. Biliary ducts: No biliary dilation. Pancreas: No ductal dilation. Spleen: Size is within normal limits. Adrenal Glands: No adrenal nodules. Kidneys and Ureters: No hydronephrosis. No solid mass. No complex renal cystic lesion which requires follow up. Stomach and Bowel: Normal colonic caliber, without significant wall thickening. Appendix is normal. Very minimal stranding at the root of the mesentery. Scattered subcentimeter lymph nodes. Peritoneum: No abnormal intraperitoneal fluid. No free air. Ventral Wall: Fat containing ventral hernia. Abdominal Nodes: No retroperitoneal or mesenteric adenopathy by size criteria. Vessels: Aorta and inferior vena cava are normal in size. PELVIS: Pelvic Organs: Unremarkable. Bladder: No bladder wall thickening, accounting for underdistention. Pelvic Nodes: No enlarged lymph nodes. Miscellaneous: Fat containing inguinal hernias are seen. Bones: No aggressive osseous abnormality. Left hip arthroplasty. IMPRESSION: Very minimal stranding at the root of the mesentery with subcentimeter lymph nodes. Inflammation such as panniculitis cannot be definitively excluded. Cystic structure at the donnie hepatis as described above without obstruction. This may represent a choledochal cyst. Further evaluation on a nonemergent basis with MRCP may be obtained. The above findings are concordant with preliminary report. Dictated by: Angelina Bach M.D. on 05/25/2024 at 9:27 Approved by: Angelina Bach M.D. on 05/25/2024 at 9:30
[2024-05-25] MEDS: FAMOTIDINE 20 MG/2 ML VIAL IV (05:55)
[2024-05-25 06:05] LABS: Add Manual Diff / Slide Review NO; Basophils Absolute Auto 100 /uL (0-100); Basophils Percent Auto 0.7 % (0-2); Eosinophils Absolute Auto 200 /uL (0-450); Eosinophils Percent Auto 2.5 % (2-4); Hematocrit 46.2 % (41-53); Hemoglobin 15.9 g/dL (13.5-17.5); Lymphocytes Absolute Auto 1300 /uL (1100-4500); Lymphocytes Percent Auto 17.2 % (25-40); Mean Corpuscular HGB Conc 34.5 % (30-36); Mean Corpuscular Hemoglobin 30.7 PG (26-34); Mean Corpuscular Volume 88.8 fL (80-100); Monocytes Absolute Auto 1000 /uL (0-900); Monocytes Percent Auto 12.3 % (3-14); Neutrophils Absolute Auto 5200 /uL (1500-7000); Neutrophils Percent Auto 67.3 % (50-75); Platelet Count 108 X10^3/uL (150-400); Red Cell Distribution Width 14.6 % (11.6-14.8); White Blood Cell Count 7.8 X10^3/uL (4.5-11.0)
[2024-05-25 06:07] LABS: INR 2.9 (0.9-1.3); Prothrombin Time 32.2 SECONDS (9.4-12.5)
[2024-05-25 06:09] LABS: PTT Partial Thromboplastin Tim 51 SECONDS (25.1-36.5)
[2024-05-25 06:10] LABS: Alanine Aminotransferase 21 IU/L (<50); Albumin 4.6 g/dL (3.5-5.0); Albumin Globulin Ratio 1.7 (1.0-2.8); Alkaline Phosphatase 57 U/L (38-126); Aspartate Aminotransferase 29 IU/L (17-59); BUN Creatinine Ratio 16.7 (6-22); Blood Urea Nitrogen 20 mg/dL (9-20); Calcium 9.7 mg/dL (8.4-10.2); Carbon Dioxide 26 mmol/L (22-32); Chloride 103 mmol/L (98-107); Estimated Glomerular Filt Rate > 60 mL/min (>60); Globulin 2.7 g/dL (1.7-4.1); Glucose 107 mg/dL (80-110); HEMOLYSIS 22 (0-50); Lipase 113 U/L (23-300); Potassium 4.2 mmol/L (3.4-5.1); Sodium 138 mmol/L (137-145); Total Protein 7.3 g/dL (6.3-8.2)
[2024-05-25 06:11] LABS: Lactate (Lactic Acid) 0.7 mmol/L (0.7-2.1)
[2024-05-25 06:14] LABS: Magnesium 1.9 mg/dL (1.6-2.3)
== END 2024-05-25 08:56 | disposition home or self-care (01) ==
PROVIDERS: Student in an Organized Health Care Education/Training Program; Emergency Provider Emergency Medicine; PCP Internal Medicine; Referring Provider Internal Medicine Cardiovascular Disease
DX: K80.20 Calculus of gallbladder without cholecystitis without obstruction (principal); K59.00 Constipation, unspecified; T50.905A Adverse effect of unspecified drugs, medicaments and biological substances, initial encounter; Z95.2 Presence of prosthetic heart valve; E78.5 Hyperlipidemia, unspecified; I10 Essential (primary) hypertension; Z79.01 Long term (current) use of anticoagulants
CPT/HCPCS: 36415; 74177; 80053; 81003; 83605; 83690; 83735; 85025; 85610; 85730; 96374; 99284; Q9967

== ENCOUNTER → 2024-07-09 12:09 | Outpatient (CLI) | payer OTHER, SELFPAY ==
--- NOTE | 2024-07-09 12:15 | DI.RAD.S_ITS ---
PROCEDURE: XR ABDOMEN MIN 2V INDICATIONS: obstipation TECHNIQUE: 2 views of the abdomen were acquired. COMPARISON: None. FINDINGS: Stool gas pattern: Normal-no evidence of ileus or obstruction. No free intraperitoneal or extraperitoneal air. No gross evidence of ascites Soft tissues: No abnormal calcifications. No soft tissue masses. Organs: No gross evidence for organomegaly. IMPRESSION: Normal abdomen Dictated by: Clifton Jones M.D. on 07/10/2024 at 12:28 Approved by: Clifton Jones M.D. on 07/10/2024 at 12:28
--- NOTE | 2024-07-09 12:15 | DI.RAD.S_ITS ---
PROCEDURE: XR HAND RT MIN 3V INDICATIONS: hand pain TECHNIQUE: 3 views of the hand(s) acquired. COMPARISON: None. FINDINGS: Bones: A 4 mm triangular shaped fragment is seen in the radial soft tissues adjacent the trapezium. This may represent a avulsion fracture. Joints: Mild degeneration of the 1st CMC moderate degeneration 1st MCP and mild degeneration in the the interphalangeal joints noted Soft tissues: No soft tissue abnormality. IMPRESSION: Degeneration. Calcification, adjacent to the the trapezium , may represent an avulsion fracture Dictated by: Clifton Jones M.D. on 07/10/2024 at 12:28 Approved by: Clifton Jones M.D. on 07/10/2024 at 12:30
[2024-07-09 14:03] LABS: Erythrocyte Sedimentation Rate 3 MM/HR (0-15)
[2024-07-09 14:08] LABS: C-Reactive Protein Quant < 0.5 mg/dL (<1.0)
[2024-07-09 14:11] LABS: Rheumatoid Factor < 8.6 IU/mL (<12.0)
[2024-07-09 14:38] LABS: TSH w/ Reflex to FT4 0.95 uIU/mL (0.47-4.68)
[2024-07-12 11:41] LABS: CCP Antibodies IgG/IgA 7 units (0-19)
[2024-07-13 17:36] LABS: ANA Screen, IFA Negative (.)
== END ==
PROVIDERS: PCP Internal Medicine; Referring Provider Internal Medicine; Visit Provider Internal Medicine
DX: K59.00 Constipation, unspecified (principal); M79.641 Pain in right hand; M25.50 Pain in unspecified joint; E03.9 Hypothyroidism, unspecified
CPT/HCPCS: 36415; 73130; 74019; 84443; 85651; 86038; 86140; 86200; 86430

== ENCOUNTER → 2024-09-12 09:22 | Outpatient (CLI) | payer OTHER, SELFPAY ==
[2024-09-12 10:31] LABS: Hematocrit 44.9 % (41-53); Hemoglobin 15.3 g/dL (13.5-17.5); Mean Corpuscular HGB Conc 34.2 % (30-36); Mean Corpuscular Hemoglobin 30.7 PG (26-34); Mean Corpuscular Volume 90.0 fL (80-100); Platelet Count 127 X10^3/uL (150-400)
[2024-09-12 10:57] LABS: Blood Urea Nitrogen 18 mg/dL (9-20); Calcium 9.7 mg/dL (8.4-10.2); Carbon Dioxide 26 mmol/L (22-32); Chloride 102 mmol/L (98-107); Estimated Glomerular Filt Rate > 60 mL/min (>60); Glucose 96 mg/dL (70-99); HEMOLYSIS 16 (0-50); Potassium 4.4 mmol/L (3.4-5.1); Sodium 135 mmol/L (137-145)
[2024-09-12 11:05] LABS: NT-proBNP (BNP-Adult 18+) 216 pg/mL (<125)
== END ==
PROVIDERS: PCP Internal Medicine; Referring Provider Internal Medicine Cardiovascular Disease; Visit Provider Internal Medicine Cardiovascular Disease
DX: I50.32 Chronic diastolic (congestive) heart failure (principal)
CPT/HCPCS: 36415; 80048; 83880; 85027

== ENCOUNTER → 2024-11-19 16:13 | Outpatient (CLI) | payer OTHER, SELFPAY | PROVIDERS: PCP Internal Medicine; Referring Provider Orthopaedic Surgery Adult Reconstructive Orthopaedic Surgery; Visit Provider Orthopaedic Surgery Adult Reconstructive Orthopaedic Surgery | DX: Z96.649 Presence of unspecified artificial hip joint (principal); M17.12 Unilateral primary osteoarthritis, left knee; Z96.642 Presence of left artificial hip joint; I50.32 Chronic diastolic (congestive) heart failure; Z95.2 Presence of prosthetic heart valve; Z68.31 Body mass index [BMI] 31.0-31.9, adult | CPT/HCPCS: 36415; 73502; 73564; 82495; 83018; 99214 ==

== ENCOUNTER → 2025-01-02 10:23 | Outpatient (CLI) | payer OTHER, SELFPAY ==
[2025-01-02 11:32] LABS: Hematocrit 44.3 % (41-53); Hemoglobin 15.3 g/dL (13.5-17.5); Mean Corpuscular HGB Conc 34.5 % (30-36); Mean Corpuscular Hemoglobin 31.1 PG (26-34); Mean Corpuscular Volume 90.1 fL (80-100); Platelet Count 117 X10^3/uL (150-400)
[2025-01-02 12:01] LABS: Blood Urea Nitrogen 17 mg/dL (9-20); Calcium 9.6 mg/dL (8.4-10.2); Carbon Dioxide 25 mmol/L (22-32); Chloride 104 mmol/L (98-107); Estimated Glomerular Filt Rate > 60 mL/min (>60); Glucose 90 mg/dL (70-99); HEMOLYSIS 22 (0-50); Potassium 4.3 mmol/L (3.4-5.1); Sodium 138 mmol/L (137-145)
[2025-01-02 12:09] LABS: NT-proBNP (BNP-Adult 18+) 118 pg/mL (<125)
== END ==
PROVIDERS: PCP Internal Medicine; Referring Provider Internal Medicine; Visit Provider Internal Medicine Cardiovascular Disease
DX: I50.32 Chronic diastolic (congestive) heart failure (principal)
CPT/HCPCS: 36415; 80048; 83880; 85027

== ENCOUNTER → 2025-03-12 15:26 | Outpatient (CLI) | payer OTHER, SELFPAY ==
--- NOTE | 2025-03-12 15:27 | DI.RAD.S_ITS ---
PROCEDURE: XR THORACIC SPINE 2V INDICATIONS: mid back pain TECHNIQUE: 2 views of the thoracic spine were acquired. COMPARISON: None. FINDINGS: Bones: No fractures or dislocations. No suspicious bony lesions. 12 pairs of ribs are noted, and appear intact where visualized. Scattered multiple degenerative disc space narrowing as well as anterior osteophytes. Soft tissues: No paravertebral stripe thickening. IMPRESSION: No visualized acute fracture or dislocation. However, if clinical concern and/or pain persist, short interval imaging followup in 7-10 days is recommended, as occult injury cannot be definitively excluded. Dictated by: Angelina Bach M.D. on 03/12/2025 at 23:09 Approved by: Angelina Bach M.D. on 03/12/2025 at 23:10
--- NOTE | 2025-03-12 15:27 | DI.RAD.S_ITS ---
PROCEDURE: XR LUMBAR SPINE MIN 4V INDICATIONS: low back pain TECHNIQUE: 5 views of the lumbar spine acquired, including flexion and extension views. COMPARISON: None. FINDINGS: Bones: 5 nonrib-bearing vertebrae are present. There is trace retrolisthesis of L2 on L3, L3 on L4. Multilevel degenerative disc and foraminal narrowing most severe at L4-5 and L5-S1. Scattered small anterior osteophytes are present. No vertebral body compression fractures. No suspicious bony lesions. Left hip arthroplasty. Soft tissues: Overlying bowel gas pattern is normal. No suspicious soft tissue calcifications. Flexion/extension: There is decreased range of motion, with preserved normal alignment. IMPRESSION: Multilevel degenerative changes most severe at L4-5, L5-S1. Dictated by: Angelina Bach M.D. on 03/12/2025 at 23:09 Approved by: Angelina Bach M.D. on 03/12/2025 at 23:09
== END ==
PROVIDERS: PCP Internal Medicine; Referring Provider Physical Medicine & Rehabilitation; Visit Provider Physical Medicine & Rehabilitation
DX: M54.50 Low back pain, unspecified (principal); M54.6 Pain in thoracic spine
CPT/HCPCS: 72070; 72110